=== PATIENT | female | born 1955 | race Caucasian/White ===

== ENCOUNTER → 2020-05-05 13:53 | Outpatient (BNVA) | payer MEDICARE, OTHER, SELFPAY | PROVIDERS: PCP Urology; Visit Provider Nurse Practitioner | DX: J43.9 Emphysema, unspecified (principal); R91.8 Other nonspecific abnormal finding of lung field; E03.9 Hypothyroidism, unspecified; E55.9 Vitamin D deficiency, unspecified | CPT/HCPCS: 80053; 81000; 82306; 82607; 84443; 85025 ==

== ENCOUNTER 2020-05-06 18:05 | Inpatient (IN) | payer MEDICARE, OTHER, SELFPAY ==
[2020-05-06] VITALS (8 sets, daily range): BP systolic 98–154; BP diastolic 72–99; PULSE 72–100; RESP 12–22; TEMP 36.8–36.9; O2SAT 95–100; BMI 17.9
--- NOTE | 2020-05-06 18:08 | XR_ITS ---
WS: [id number] Portable AP upright chest, 05/06/2020 Clinical Data: Chest pain Comparison: Portable chest, 09/19/2017 Findings: There is patchy atelectasis and/or pneumonia of the left upper lobe. The right lung is norm al. The left lower lobe is clear. The heart is normal. No nodules or masses are seen. The aortic arch shows calcification and tortuosity. Monitor leads are on the chest wall. XR/XR chest 1V portable [id number] Impression: 1. Left upper lobe atelectasis or pneumonia. 2. This could be a result of an obstructed bronchus and follow-up chest x-ray i s recommended.
--- NOTE | 2020-05-06 18:09 | ECG_ITS ---
[facility] Test Date: 2020-05-06 Pat Name: Jerica Gary Department: Room: Gender: Female Crime Specialist: : 1955 Requested By: Michelle Mckeon Order Number: [id number] Wells MD: Yasmine Turcios M.D. Measurements Intervals [place] Rate: 85 P: 90 [place]: 161 QRS: 89 QRSD: 81 T: 90 QT: 369 QTc: 441 Interpretive Statements SINUS RHYTHM POSSIBLE LEFT ATRIAL ENLARGEMENT [-0.1mV P WAVE IN V1/V2] Compared to ECG 09/09/2015 13:30:51 No significant changes Electronically Signed On 05-06-2020 20:20:09 SHAKE CUTTER by Yasmine Turcios M.D. [email or web address]
[2020-05-06 19:28] LABS: Basophils # 0.1 10^3/uL (0.0-0.1); Basophils % 0.6 %; Eosinophils # 0.2 10^3/uL (0.0-0.8); Eosinophils % 1.8 %; Hematocrit 46.4 % (37.0-47.0); Hemoglobin 15.4 g/dL (11.5-15.3); Lymphocytes # 3.1 10^3/uL (0.8-4.8); Lymphocytes % 30.7 %; Mean Corpuscular HGB Conc 33.2 g/dL (30.0-36.0); Mean Corpuscular Hemoglobin 31.3 pg (28.0-34.0); Mean Corpuscular Volume 94.3 fL (81-99); Mean Platelet Volume 9.5 fL (7.4-10.4); Neutrophils # 5.68 10^3/uL (1.8-7.7); Neutrophils % 56.7 %; Nucleated Red Blood Cells % 0 %; Platelet Count 631 10^3/cmm (130-400); Red Blood Count 4.92 10^6/uL (4.1-5.3); Red Cell Distribution Width 14.5 % (12.1-15.1)
[2020-05-06] MEDS: sodium chloride 0.9% 1,000 ML 100 ML IV ×2 (19:40→23:51)
[2020-05-06 19:51] LABS: Troponin(5th) Baseline 15 ng/L (0-10)
--- NOTE | 2020-05-06 19:57 | ED_ITS ---
HPI - Chest Pain General: Chief Complaint: Chest Pain Stated Complaint: CHEST PAIN Time Seen by Provider: 05/06/20 18:08 Source: patient and EMS Mode of arrival: EMS Limitations: no limitations History of Present Illness: HPI narrative: Ms. Gary is a nice 65-year-old female who comes in complaining of chest discomfort for the past 2 weeks. She states that every time she exerts herself she begins to get discomfort in her chest and radiation to her neck. She is noticed at times but not always that she has rapid palpitations during this. She states as soon as she rests her symptoms resolved. EMS noted the patient had what was believed to be atrial fibrillation with a rapid ventricular response. She did not require treatment as they started fluids and were preparing to intervene the rhythm resolved on its own. Multiple EMS strips are included somewhat sinus rhythm although to do appear to be likely A. fib with RVR. Patient did have some chest discomfort after she had resolution of the arrhythmia and was given 1 sublingual nitroglycerin and aspirin and her symptoms resolved. Associated symptoms: Reports dyspnea; Deny abdominal pain, diaphoresis, fever(s), nausea, palpitations, syncope or vomiting Review of Systems Const: Denies: fever(s), chills, body aches, fatigue, malaise or diaphoresis Eyes: Denies: change in vision, blurry vision, photophobia, eye discomfort, eye discharge, eye redness or yellow eyes ENMT: Denies: throat pain, odynophagia, hoarseness, swelling of lips/tongue, ear or mastoid pain, ear discharge, change in hearing or nasal discharge Card: Reports: chest pain; Denies: palpitations, irregular heart rhythm, edema, lightheadedness, syncope, pre-syncope, dyspnea on exertion or orthopnea Resp: Reports: dyspnea; Denies: productive cough, non-productive cough, wheezing, hemoptysis or chest congestion GI: Denies: abdominal pain, nausea, vomiting, hematemesis, coffee ground emesis, heartburn, diarrhea, constipation, GI cramping, hematochezia or melena : Denies: flank pain, dysuria, urinary frequency, urinary urgency or hematuria Musc: Denies: neck pain, back pain, extremity pain, extremity swelling, joint pain, joint swelling, joint redness, joint warmth or joint stiffness Skin/Breast: Denies: rash, pruritus, erythema, skin pain or skin tenderness Neuro: Denies: headache(s), numbness in extremities, weakness in extremities, sensory changes, lack of coordination, difficulty walking, dizziness, vertigo, confusion, Slurred speech present or seizure-like activity Jeremy/Lymph: Denies: easy bruising, easy bleeding, petechiae, purpura or enlar ged lymph nodes All/Imm: Denies: urticaria, throat swelling, tongue swelling, facial swelling or acute wheezing PFSH ED PFSH: Medical History Adult hypothyroidism COPD (chronic obstructive pulmonary disease) with emphysema Lung nodule, multiple Surgical History History of back surgery Lumbar 1988 and 1989 History of bladder cancer 2017 History of colonoscopy History of tubal ligation Family History Other Adult hypothyroidism Depression Diabetes Heart disease Social History Smoking and tobacco status: current every day smoker Second hand smoke exposure: No Smoking risk assessment/counseling performed?: Yes Alcohol intake: current Alcohol intake frequency: holidays/special occasions only Desire information about alcohol rehabilitation?: No Counseling given: No Desire information about substance/drug rehabilitation?: No Counseling given: No Adopted: No Caregiver/support person: No Lives independently: Yes Household members: none Housing: House Marital status: / Number of children: 3 service: No Current occupational status: unemployed and retired Pets and animals: Yes Pets & animals: cat(s) and dog(s) History of recent travel: No Current gender identity: Female Physical Exam Const: COMMON NORMALS: no acute distress, patient oriented x3, no limitations and alert GENERAL APPEARANCE: cooperative HENMT: COMMON NORMALS: normocephalic, atraumatic, external ears normal, EAC's normal and Normal external nose present HEAD & SCALP: normal to inspection, normocephalic and atraumatic FACE & SINUS: normal facial exam and face symmetric NOSE: Normal external nose present and Normal nares present EXTERNAL EAR: Yes external ears normal EXTERNAL AUDITORY CANAL: EAC's normal MOUTH: Normal oral and palatal mucosa present, lip normal and tongue normal Eye: COMMON NORMALS: Equal, round and reactive pupils present and conjunctivae normal GENERAL EYE: appearance normal, both eyes and all related structures ALIGNMENT: Yes alignment normal PERIORBITAL: periorbital findings normal EYELID: eyelids normal CONJUNCTIVA: Yes conjunctivae normal SCLERA: sclerae normal PUPIL: Yes Equal, round and reactive pupils present Neck/C-Spine: COMMON NORMALS: full ROM, no lymphadenopathy, supple, no meningeal signs and no JVD GENERAL: Yes normal visual inspection and Yes trachea midline Chest: COMMONS NORMALS: normal inspection of the chest and normal palpation of entire chest wall Resp: COMMON NORMALS: normal respiratory effort, No retractions, No use of accessory muscles and clear to auscultation bilaterally EFFORT & INSPECTION: Yes able to speak in complete sentences and Yes symmetric chest movement AUSCULTATION: clear to auscultation bilaterally, no crackles, no rales, no rhonchi and no wheezes Cardio: COMMON NORMALS: no JVD, regular rate, regular rhythm, S1 normal heart sound present and S2 normal heart sound present RATE: regular rate RHYTHM: regular rhythm HEART SOUNDS: S1 normal heart sound present, S2 normal heart sound present, no click, no gallops, no murmurs and no rubs GI: COMMON NORMALS: Soft to palpation and No hepatosplenomegaly present PALPATION: Yes Soft to palpation, No Tenderness to palpation present (GI), No Guarding due to palpation present (GI), No Rigid due to palpation, Yes No hepatosplenomegaly present, No Hernia present, No Palpable mass present and No Pulsatile mass present : COMMON NORMALS: Yes no CVA tenderness BLADDER/KIDNEY EXAM: Yes no CVA tenderness EXTERNAL FEMALE EXAM: No Hernia present Back/Pelvis: COMMON NORMALS: no CVA tenderness, thoracic and lumbar spine normal to inspection, no thoracic nor lumbar tenderness and thoraco-lumbar ROM normal Extremity: COMMON NORMALS: normal to inspection, full ROM, capillary refill normal, no joint enlargement, no clubbing, cyanosis or edema and no calf tenderness Neuro: COMMON NORMALS: patient oriented x3, CN's II-XII intact bilaterally, moves all extremities, no focal motor deficits and no sensory deficits noted SENSORIUM/ORIENTATION: Yes alert MENINGEAL SIGNS: Yes no meningeal signs SPEECH: speech normal Psych: COMMON NORMALS: mental status grossly normal, Normal thought process present, cooperative, normal affect, speech normal and activity/motor behavior normal SPEECH: Yes normal speech THOUGHT PROCESS: Normal thought process present Skin: COMMON NORMALS: no rashes or lesions noted, turgor normal, no jaundice, no petechiae and no mottling GENERAL SKIN EXAM: no rashes or lesions noted and turgor normal Course Vital Signs: Vital signs: Vital Signs Temperature 98.5 F 05/06/20 23:51 Pulse Rate 80 05/07/20 00:16 Respiratory Rate 22 H 05/06/20 23:51 Blood Pressure 144/75 05/06/20 23:51 Pulse Oximetry 98 05/06/20 23:53 MDM - Chest Pain MDM Narrative: Medical decision making narrative: Mrs. Gary is a nice 65-year-old female who comes in with chest discomfort every time she exerts herself for the past 2 weeks. Her symptoms are brought on by exertion, made worse by exertion and relieved with rest. Tonight she had the symptoms and also had discomfort radiate to her throat her arms. She also felt rapid palpitations. EMS was able to capture the palpitations on twelve-lead. They have a rhythm strip as well which shows A. fib with RVR. The patient converted with IV fluids to a sinus rhythm for them. The patient did have some discomfort even after she converted but her symptoms completely resolved with 1 sublingual nitro given by EMS. Patient was also found to have what I thought was an infiltrate or mass next to her left heart border. Patient cannot tolerate a CTA secondary to anaphylactic reactions in the past and so a noncontrast CT showed atelectasis but questionable partial bronchial obstruction. Is unclear at this time what is the primary issue. Patient could have coronary artery disease that is causing chest discomfort and precipitating A. fib with RVR with exertion. It is possible she has some type of lung tumor or mass causing atelectasis and the COPD and increased hypoxia secondary to this obstruction is causing chest discomfort along with A. fib with RVR. This time the patient has a heart score of at least 7 possibly 8. She also has this lung issue that will need to be looked into further. Based upon all this I believe the patient will need to be evaluated further. The patient was endorsed to Dr. Nowak he is agreeable to evaluate the patient. Lab Data: Attestation: I reviewed the patient's lab results. Labs: Lab Results 05/06/20 05/06/20 05/06/20 Range/Units 18:18 18:18 18:18 WBC 10.0 (4.0-10.0) 10^3/ uL RBC 4.92 (4.1-5.3) 10^6/u L Hgb 15.4 H (11.5-15.3) g/dL Hct 46.4 (37.0-47.0) % MCV 94.3 (81-99) fL MCH 31.3 (28.0-34.0) pg MCHC 33.2 (30.0-36.0) g/dL RDW 14.5 (12.1-15.1) % Plt Count 631 H (130-400) 10^3/c mm MPV 9.5 (7.4-10.4) fL Neut % (Auto) 56.7 % Lymph % (Auto) 30.7 % [place] % (Auto) 10.0 % Eos % (Auto) 1.8 % Baso % (Auto) 0.6 % Neut # (Auto) 5.68 (1.8-7.7) 10^3/u L Lymph # (Auto) 3.1 (0.8-4.8) 10^3/u L [place] # (Auto) 1.0 H (0.2-0.9) 10^3/u L Eos # (Auto) 0.2 (0.0-0.8) 10^3/u L Baso # (Auto) 0.1 (0.0-0.1) 10^3/u L Nucleated RBC % (a uto) 0 % Nucleated RBCs # 0.0 /100WBC PT 12.40 (12.1-14.9) SECO NDS INR 0.90 (0.8-1.2) Sodium 135 L (136-145) mmol/L Potassium 4.9 (3.5-5.1) mmol/L Chloride 97 L (98-107) mmol/L Carbon Dioxide 28 (22-29) mmol/L Anion Gap 14.9 (5-19) BUN 17 (8-23) mg/dL Creatinine 0.8 (0.5-0.9) mg/dL GFR Calculation 72.0 L (90-130) mL/min Glucose 98 (65-115) mg/dL Calculated Osmolal ity 282 L (285-295) mOsm/k g Calcium 9.7 (8.5-10.5) mg/dL Magnesium 2.2 (1.7-2.3) mg/dL Total Bilirubin 0.2 (0.15-1.2) mg/dL AST 15 (0-32) U/L ALT 11 (0-33) U/L Alkaline Phosphata se 78 (35-105) IU/L Troponin T Baselin e (0-10) ng/L Troponin T 120 Min [place] (0-10) ng/L Delta Troponin T (0-10) ABS# NT-Pro-B Natriuret Pep 584 H (0-125) pg/mL Total Protein 6.9 (6.6-8.7) g/dL Albumin 4.7 (3.5-5.2) g/dL Globulin 2.2 (1.3-4.6) g/dL Lipase 39 (13-60) U/L 05/06/20 05/06/20 Range/Units 18:18 20:20 WBC (4.0-10.0) 10^3/ uL RBC (4.1-5.3) 10^6/u L Hgb (11.5-15.3) g/dL Hct (37.0-47.0) % MCV (81-99) fL MCH (28.0-34.0) pg MCHC (30.0-36.0) g/dL RDW (12.1-15.1) % Plt Count (130-400) 10^3/c mm MPV (7.4-10.4) fL Neut % (Auto) % Lymph % (Auto) % [place] % (Auto) % Eos % (Auto) % Baso % (Auto) % Neut # (Auto) (1.8-7.7) 10^3/u L Lymph # (Auto) (0.8-4.8) 10^3/u L [place] # (Auto) (0.2-0.9) 10^3/u L Eos # (Auto) (0.0-0.8) 10^3/u L Baso # (Auto) (0.0-0.1) 10^3/u L Nucleated RBC % (a uto) % Nucleated RBCs # /100WBC PT (12.1-14.9) SECO NDS INR (0.8-1.2) Sodium (136-145) mmol/L Potassium (3.5-5.1) mmol/L Chloride (98-107) mmol/L Carbon Dioxide (22-29) mmol/L Anion Gap (5-19) BUN (8-23) mg/dL Creatinine (0.5-0.9) mg/dL GFR Calculation (90-130) mL/min Glucose (65-115) mg/dL Calculated Osmolal ity (285-295) mOsm/k g Calcium (8.5-10.5) mg/dL Magnesium (1.7-2.3) mg/dL Total Bilirubin (0.15-1.2) mg/dL AST (0-32) U/L ALT (0-33) U/L Alkaline Phosphata se (35-105) IU/L Troponin T Baselin e 15 H (0-10) ng/L Troponin T 120 Min [place] 14.45 H (0-10) ng/L Delta Troponin T -0.55 L (0-10) ABS# NT-Pro-B Natriuret Pep (0-125) pg/mL Total Protein (6.6-8.7) g/dL Albumin (3.5-5.2) g/dL Globulin (1.3-4.6) g/dL Lipase (13-60) U/L Imaging Data^: CXR: Attestation: I personally reviewed and interpreted this imaging study as follows: CT Chest: Radiologist's impression: [address] [address] [address] Scan Report Signed Patient: Jerica Gary Unit #: [id number] : 1955 Age/Sex: 65 / F ADM Date: 07/07/19 Loc: ER Room/Bed: Attending Dr: Ordering Provider/Ordering MD: Michelle Wiseman DO Date of Service: 05/06/20 Procedure(s): CT chest con [id number] Accession Number(s): [id number] Report Number: [id number] PROCEDURE INFORMATION: Exam: CT Chest Without Contrast; Diagnostic Exam date and time: 05/06/2020 8:12 PM Age: 65 years old Clinical indication: Chest pain; Additional info: Cp TECHNIQUE: Imaging protocol: Diagnostic computed tomography of the chest without contrast. Radiation optimization: All CT scans at this facility use at least one of these dose optimization techniques: automated exposure control; mA and/or kV adjustment per patient size (includes targeted exams where dose is matched to clinical indication); or iterative reconstruction. COMPARISON: CT chest con [id number] 12/19/2014 10:17 AM RADIATION DOSE METRICS: Total DLP (mGy-cm): 360.38 FINDINGS: Lungs: Mild centrilobular emphysema is noted. Partial atelectasis of the left upper lobe is noted. The left upper lobe bronchus is severely narrowed, possibly compressed Small indeterminate subcentimeter nodules are again seen in the right lower lobe, which appear stable and are likely benign. Pleural space: Unremarkable. No pneumothorax. No pleural effusion. Heart: The heart is normal in size Aorta: Unremarkable. No aortic aneurysm. Lymph nodes: Unremarkable. No enlarged lymph nodes. Bones/joints: Unremarkable. No acute fracture. Soft tissues: Unremarkable. CT/CT chest [facility] [id number] IMPRESSION: 1. Partial left upper lobe atelectasis and left upper lobe bronchus narrowing. Bronchoscopy is recommended for further assessment. 2. Mild centrilobular emphysema. Radiation Dose CTDIVOL = (mGy): DLP = 360.38 (mGy-cm) Dictated By: Cain Cardenas MD Signed By: Cain Cardenas MD Signed Date/Time: 05/06/202123 DD/ 06 EKG Data^: EKG 1: Attestation: I personally reviewed and interpreted this EKG as follows: EKG interpretation date: 05/06/20 EKG interpretation time: 18:24 Interpretation: Normal sinus rhythm at 91 beats a minute, no blocks, normal intervals, normal axis, nonspecific ST and T wave changes. Benign early repole. Confirmed with Dr. Hernandez. Similar to previous. EKG 2: Attestation: I personally reviewed and interpreted this EKG as follows: EKG interpretation date: 05/06/20 EKG interpretation time: 20:14 Interpretation: Normal sinus rhythm at 85 beats a minute, diffuse mild ST segment elevation consistent with benign early repolarization. Nonspecific T wave inversions in aVL and V2. Unchanged from previous. EKG 3: Attestation: I personally reviewed and interpreted this EKG as follows: EKG interpretation date: 05/06/20 EKG interpretation time: 23:09 Interpretation: Normal sinus rhythm at 85 beats a minute, diffuse ST segment elevations consistent with benign early repolarization. T wave inversions aVL V2. All unchanged from previous. Discharge Plan Discharge Patient Disposition: Placed in Observation Admit Provider: Parker Nowak Clinical Impression: Paroxysmal atrial fibrillation with RVR, Atelectasis of left lung Chest pain Qualifiers: Chest pain type: chest pain due to myocardial ischemia Ischemic chest pain type: unstable angina pectoris Qualified Code(s): I20.0 - Unstable angina Coding Level of Care Code ED Health Care / Medical Job Titles for Aaliyah Fwd Exam Comprehensive
[2020-05-06 19:59] LABS: Alanine Aminotransferase 11 U/L (0-33); Albumin Level 4.7 g/dL (3.5-5.2); Alkaline Phosphatase 78 IU/L (35-105); Anion Gap 14.9 (5-19); Aspartate Amino Transferase 15 U/L (0-32); Blood Urea Nitrogen 17 mg/dL (8-23); Calcium 9.7 mg/dL (8.5-10.5); Carbon Dioxide 28 mmol/L (22-29); Chloride 97 mmol/L (98-107); Globulin 2.2 g/dL (1.3-4.6); Glucose 98 mg/dL (65-115); Lipase 39 U/L (13-60); Magnesium 2.2 mg/dL (1.7-2.3); NT Pro B Type Natriuretic Pept 584 pg/mL (0-125); Osmolality Calculated 282 mOsm/kg (285-295); Potassium 4.9 mmol/L (3.5-5.1); Sodium 135 mmol/L (136-145); Total Bilirubin 0.2 mg/dL (0.15-1.2); Total Protein 6.9 g/dL (6.6-8.7)
--- NOTE | 2020-05-06 20:06 | CTR_ITS ---
PROCEDURE INFORMATION: Exam: CT Chest Without Contrast; Diagnostic Exam date and time: 05/06/2020 8:12 PM Age: 65 years old Clinical indication: Chest pain; Additional info: Cp TECHNIQUE: Imaging protocol: Diagnostic computed tomography of the chest without contrast. Radiation optimization: All CT scans at this facility use at least one of these dose optimization techniques: automated exposure control; mA and/or kV adjustment per patient size (includes targeted exams where dose is matched to clinical indication); or iterative reconstruction. COMPARISON: CT chest con [id number] 12/19/2014 10:17 AM RADIATION DOSE METRICS: Total DLP (mGy-cm): 360.38 FINDINGS: Lungs: Mild centrilobular emphysema is noted. Partial atelectasis of the left upper lobe is noted. The left upper lobe bronchus is severely narrowed, possibly compressed Small indeterminate subcentimeter nodules are again seen in the right lower lobe, which appear stable and are likely benign. Pleural space: Unremarkable. No pneumothorax. No pleural effusion. Heart: The heart is normal in size Aorta: Unremarkable. No aortic aneurysm. Lymph nodes: Unremarkable. No enlarged lymph nodes. Bones/joints: Unremarkable. No acute fracture. Soft tissues: Unremarkable. CT/CT chest con [id number] IMPRESSION: 1. Partial left upper lobe atelectasis and left upper lobe bronchus narrowing. Bronchoscopy is recommended for further assessment. 2. Mild centrilobular emphysema. Radiation Dose CTDIVOL = (mGy): DLP = 360.38 (mGy-cm)
--- NOTE | 2020-05-06 20:09 | ECG_ITS ---
[facility] Test Date: 2020-05-06 Pat Name: Jerica Gary Department: Room: Gender: Female Activities Manager: : 1955 Requested By: Michelle Mckeon Order Number: [id number] Priscilla MD: Tha Hernandez M.D. Measurements Intervals [place] Rate: 91 P: 92 MS: 155 QRS: 89 QRSD: 77 T: 89 QT: 355 QTc: 438 Interpretive Statements SINUS RHYTHM POSSIBLE LEFT ATRIAL ENLARGEMENT [-0.1mV P WAVE IN V1/V2] Compared to ECG 09/09/2015 13:30:51 No significant changes Electronically Signed On 05-07-2020 17:40:58 PANTRY STEWARD/STEWARDESS by Tha Hernandez M.D. [email or web address]
--- NOTE | 2020-05-06 20:16 | PC.NURSE ---
EKG done at 2014 and shown to ER doctor
[2020-05-06 21:07] LABS: Troponin 5 2HR 14.45 ng/L (0-10)
[2020-05-06 21:12] LABS: Troponin 5 2HR Delta -0.55 ABS# (0-10)
[2020-05-06] MEDS: cefTRIAXone 2,000 MG in sodium chloride 0.9% (plus) 50 ML 100 MG IV (21:26)
--- NOTE | 2020-05-06 21:33 | PC.NURSE ---
Addendum entered by Ami Sierra RN 05/06/20 21:34: not 1910 actual time 2110 not 1918 actual time 2118 Original Note: 1910 Left hand BC x1 1918 2nd BC R AC Saline lock with flush before and after and waste 6cc
[2020-05-06] MEDS: azithromycin 500 MG in sodium chloride 0.9% 250 ML 250 MG IV (21:50)
--- NOTE | 2020-05-06 23:29 | PC.NURSE ---
report given to david evans
[2020-05-07] VITALS (13 sets, daily range): BP systolic 132–147; BP diastolic 77–82; PULSE 65–88; RESP 15–19; TEMP 36.4–36.7; O2SAT 95–99
--- NOTE | 2020-05-07 01:17 | USCV_ITS ---
Jerica Gary Age: 65 Gender: F : 1955 Exam Date: 05/07/2020 06:31 Ordering Phys: Parker Nowak MD Technologist: Mis Mercedes [place] [facility] [place]: CHEST PAIN BP: 147 / 82 HR: 79 Rhythm: Sinus Technical Quality: Adequate MEASUREMENTS (Male / Female) Normal Values 2D ECHO LV Diastolic Diameter PLAX 3.2 cm 4.2 - 5.9 / 3.9 - 5.3 cm LV Systolic Diameter PLAX 2.1 cm LV Chamber Size 3.0 cm IVS Diastolic Thickness 0.9 cm 0.6 - 1.0 / 0.6 - 0.9 cm IVS Systolic Thickness 1.5 cm LVPW Diastolic Thickness 1.3 cm 0.6 - 1.0 / 0.6 - 0.9 cm LVPW Systolic Thickness 1.4 cm RV Chamber Size 2.6 cm LVOT Diameter 2.0 cm LV Ejection Fraction 2D Teich 62.8 % LV Ejection Fraction MOD 2C 80.4 % LV Ejection Fraction 2C AL 81.3 % LA Diameter 2.8 cm LA Width 2.6 cm LA Height 2.6 cm RA Width 2.7 cm RA Height 2.9 cm Aorta at Sinotubular Diameter 2.8 cm M-MODE LV Diastolic Diameter MM 3.5 cm 4.2 - 5.9 / 3.9 - 5.3 cm LV Systolic Diameter MM 2.1 cm LV Ejection Fraction MM Teich 71.7 % IVS Diastolic Thickness MM 1.2 cm 0.6 - 1.0 / 0.6 - 0.9 cm IVS Systolic Thickness MM 1.2 cm LVPW Diastolic Thickness MM 1.1 cm 0.6 - 1.0 / 0.6 - 0.9 cm LVPW Systolic Thickness MM 1.5 cm RV Diastolic Diameter MM 1.6 cm Aortic Annulus Diameter 3.4 cm LA Ao Ratio MM 0.9 MV E Point Septal Separation 0.2 cm DOPPLER AV Peak Velocity 132.0 cm/s LVOT Peak Velocity 111.0 cm/s AV Area Cont Eq vti 3.3 cm squared AV Area Cont Eq pk 2.7 cm squared MV Area PHT 3.9 cm squared Mitral E to A Ratio 1.1 MV E' Velocity 53.0 cm/s Mitral E to MV E' Ratio 9.1 Mitral E to LV E' Lateral Ratio 12.7 Mitral E to LV E' Septal Ratio 7.1 TR Peak Velocity 195.1 cm/s TR Peak Gradient 15.2 mmHg TR Mean Velocity 157.4 cm/s TR Mean Gradient 12.9 mmHg TR Velocity Time Integral 62.5 cm TV Peak E Velocity 59.0 cm/s Right Atrial Pressure 8.0 mmHg Pulmonary Artery Systolic Pressu 23.2 mmHg PV Peak Velocity 67.0 cm/s RV Acceleration Time 0.2 s RV Ejection Time 0.4 s RV AcT/ET 0.4 FINDINGS Left Ventricle Normal left ventricular size and systolic function, EF 82 %. Mild left ventricular hypertrophy. No regional wall motion abnormalities. Right Ventricle The right ventricle is normal in size and function. Right Atrium The right atrium is normal in size. Left Atrium The left atrium is normal in size. Mitral Valve Thickened mitral valve. Aortic Valve No gross abnormalities noted Tricuspid Valve Trace tricuspid valve regurgitation. Pulmonic Valve No gross abnormalities noted Pericardium Normal pericardium without effusion. Aorta Normal ascending aorta dimension. CONCLUSIONS Normal left ventricular size and systolic function, EF 82 %. Mild left ventricular hypertrophy. No regional wall motion abnormalities. Thickened mitral valve. Trace tricuspid valve regurgitation. Normal pulmonary artery systolic pressure There is no pericardial effusion. There are no intracardiac masses. No similar previous studies are available for comparison Dr Christ Berumen MD [facility] (Electronically Signed) Final Date: 07 May 2020 14:15 S
--- NOTE | 2020-05-07 01:23 | PM.HP ---
Providers/Chief Complaint Admitting Physician: Parker Nowak MD Primary Care Provider: Cholo Finley MD Chief Complaint: CHEST PAIN History of Present Illness Jerica Gary is a 65 year old female with past medical history of COPD, Ca, bladder (5 years back) followed with Dr. Finley, came in with chief complaint of worsening shortness of breath, going on for 2 weeks, as well as cough, with scant whitish sputum production, as well as chest pain and palpitation. Chest pain is going on for 2-weeks according to she has substernal chest pain with minimal exertion, and radiates to her neck, chest pain is accompanied by, severe episodes of palpitations, and it subsides with rest.EMS noted the patient had what was believed to be atrial fibrillation with a rapid ventricular response. She did not require treatment as they started fluids and were preparing to intervene the rhythm resolved on its own. Multiple EMS strips are included somewhat sinus rhythm although to do appear to be likely A. fib with RVR. Patient did have some chest discomfort after she had resolution of the arrhythmia and was given 1 sublingual nitroglycerin and aspirin and her symptoms resolved. She is also complaining of weight loss of 15 to 20 pound, in last couple of months, though she has good appetite. She has been a chronic smoker and she has quit smoking 4 years back but reports that she smoked for close to 40 years about a pack a day. She resumed smoking this January after her in January. Following her at she has been under extreme stress. Upon arrival in the ER she was worked up for shortness of breath as well as chest pain: D-dimer was not done, CT angio was not done as she has dye allergy. Imaging studies: CT chest without contrast: Mild centrilobular emphysema is noted. Partial atelectasis of the left upper lobe is noted. The left upper lobe bronchus is severely narrowed, possibly compressed Small indeterminate subcentimeter nodules are again seen in the right lower lobe, which appear stable and are likely benign. Pleural space: Unremarkable. No pneumothorax. No pleural effusion. EKG: Normal sinus rhythm at 91 beats a minute, no blocks, normal intervals, normal axis, nonspecific ST and T wave changes. Benign early repole. ER physician confirmed with Dr. Hernandez. Similar to previous. Normal sinus rhythm at 85 beats a minute, diffuse mild ST segment elevation consistent with benign early repolarization. Nonspecific T wave inversions in aVL and V2. Unchanged from previous Pertinent labs: H/H: 15/46, PLT : 631 , WBC : 10 Troponin: Baseline : 15, 2-hour: 14, delta T: -0.55 6-hour: 13 detail T 6 hours: -1.10 proBNP: 584 25 -OH-D : 12 , TSH: 3.67 D-dimer : Awaited Review of Systems Const: Denies: fever(s), chills, body aches, change in appetite or diaphoresis Card: Denies: edema or swelling of feet/ankles Resp: Denies: wheezing or pain on inspiration GI: Denies: abdominal pain, nausea, vomiting, diarrhea or constipation : Denies: flank pain Musc: Denies: back pain, extremity pain or extremity swelling Neuro: Denies: headache(s), difficulty walking or confusion Medications/Allergies Home Medications Medication Instructions Recorded Confirmed Last Taken Type albuterol sulfate 90 mcg/actuation 2 puff INHALATION Q6H PRN #18 g 05/01/20 05/06/20 05/06/20 Rx aerosol inhaler aspirin 81 mg PO DAILY 05/06/20 05/06/20 05/06/20 History Allergies Allergy/AdvReac Type Severity Reaction Status Date / Time Corticosteroids Allergy Unknown Unknown Verified 05/06/20 18:21 (Glucocorticoids) iodine Allergy Unknown Unknown Verified 05/06/20 18:21 Penicillins Allergy Unknown Unknown Verified 05/06/20 18:21 promethazine Allergy Unknown Unknown Verified 05/06/20 18:21 epinephrine Allergy SOB Verified 05/06/20 18:21 [From Primatene Mist] sulfa drugs Allergy Unknown Unknown Uncoded 05/06/20 18:21 thyroid agents Allergy Unknown Unknown Uncoded 05/06/20 18:21 PFSH Acute PFSH: Medical History Adult hypothyroidism COPD (chronic obstructive pulmonary disease) with emphysema Lung nodule, multiple Surgical History History of back surgery Lumbar 1988 and 1989 History of bladder cancer 2017 History of colonoscopy History of tubal ligation Family History Other Adult hypothyroidism Depression Diabetes Heart disease Social History Smoking and tobacco status: current every day smoker Second hand smoke exposure: No Smoking risk assessment/counseling performed?: Yes Alcohol intake: current Alcohol intake frequency: holidays/special occasions only Desire information about alcohol rehabilitation?: No Counseling given: No Desire information about substance/drug rehabilitation?: No Counseling given: No Adopted: No Caregiver/support person: No Lives independently: Yes Household members: none Housing: House Marital status: / Number of children: 3 service: No Current occupational status: unemployed and retired Pets and animals: Yes Pets & animals: cat(s) and dog(s) History of recent travel: No Current gender identity: Female Vitals/I&O/Wt Last Vital Signs Temp 98.5 F 05/06/20 23:51 Pulse 80 05/07/20 00:16 Resp 22 H 05/06/20 23:51 BP 144/75 05/06/20 23:51 Pulse Ox 98 05/06/20 23:53 05/06/20 05/06/20 05/07/20 14:59 22:59 06:59 Intake Total 418.333 / 418.333 Balance 418.333 / 418.333 Weight last 48 hrs Weight 48.988 kg Physical Exam Const: COMMON NORMALS: patient oriented x3 HENMT: COMMON NORMALS: normocephalic, atraumatic, hearing grossly normal bilaterally and external ears normal HEAD & SCALP: normocephalic and atraumatic EXTERNAL EAR: Yes external ears normal Eye: COMMON NORMALS: no scleral icterus GENERAL EYE: appearance normal, both eyes and all related structures Chest: COMMONS NORMALS: normal inspection of the chest and normal palpation of entire chest wall CHEST: Yes Symmetrical chest wall rise Resp: COMMON NORMALS: normal respiratory effort, No retractions and No use of accessory muscles EFFORT & INSPECTION: Yes symmetric chest movement OTHER: Decreased air entry bilaterally , prominently at the bases , minimal expiratory wheezing l Cardio: COMMON NORMALS: regular rate, regular rhythm, S1 normal heart sound present, S2 normal heart sound present, No gallops present (Cardio), No murmurs present (Cardio), No rub (Cardio) and Peripheral pulses 2+ throughout RATE: regular rate RHYTHM: regular rhythm HEART SOUNDS: S1 normal heart sound present and S2 normal heart sound present PERIPHERAL PULSES: Peripheral pulses 2+ throughout GI: COMMON NORMALS: Normal to inspection, nondistended, normoactive bowel sounds present, Soft to palpation, non-tender, No hepatosplenomegaly present and no masses AUSCULTATION: Yes normoactive bowel sounds PALPATION: Yes Soft to palpation and Yes No hepatosplenomegaly present RECTAL EXAM: deferred Extremity: COMMON NORMALS: no clubbing, cyanosis or edema and no pedal edema Neuro: COMMON NORMALS: patient oriented x3 Data : 05/06/20 18:18 05/06/20 18:18 Micro: Microbiology 05/07/20 00:35 Blood Culture - Preliminary Blood SPECIMEN COLLECTED 05/06/20 21:19 Blood Culture - Preliminary Blood SPECIMEN COLLECTED A&P Assessment and plan (1) Chest pain: Troponins are flat. Currently not complaining of any chest discomfort. Likely related to anxiety. Less likely cardiac. 2D echo Monitor telemetry Possible outpatient stress test. Continue aspirin 81 mg oral daily Sublingual nitro. Status: Acute Qualifiers: Chest pain type: chest pain due to myocardial ischemia Ischemic chest pain type: unstable angina pectoris Qualified Code(s): I20.0 - Unstable angina (2) COPD (chronic obstructive pulmonary disease) with emphysema: COPD exacerbation: Patient comes in with chief complaint of worsening shortness of breath, cough, with worsening sputum production. Has history of extensive smoking. DuoNeb, Supplemental oxygen as needed Azithromycin 500 mg IV daily Solu-Medrol 60 mg IV daily Status: Acute (3) Paroxysmal atrial fibrillation with RVR: EMS is giving history of transient A. fib with RVR. None of the EKG strip suggestive of A. fib. Given her significant history of COPD, hypoxemia driven multifocal atrial tachycardia, A. fib are possibilities. We will monitor on telemetry. 2D echo Post admission heart rate is pretty well controlled and is in sinus rhythm. We will consider cardioselective beta-leroy if needed. Will hold on anticoagulation for now. Possible ischemia work-up as a cause of new onset A. fib if needed. Status: Acute (4) Vitamin D deficiency: Cholecalciferol 6000 unit p.o. daily for 8 weeks. Status: Acute (5) Erythrocytosis: Hemoglobin is 15.4. Likely secondary erythrocytosis, in the setting of longstanding COPD. Less likely PCV. Will hold off on erythropoietin level for now. We will continue to monitor CBC. Status: Acute (6) Thrombocytosis: Less likely essential thrombocytosis. Likely reactive thrombocytosis. We will hold off on JAK2 mutation testing. Continue aspirin, no indication for hydroxyurea. We will continue to monitor platelet count Status: Acute (7) History of bladder cancer: She has followed Dr. Finley, in the past. Currently she is giving history of occasional hematuria. Urine blood: Trace. Willing to follow-up with Dr. Finley as an outpatient Status: Inactive (8) Lung nodule, multiple: Small indeterminate subcentimeter nodules are in the right lower lobe, which appear stable and are likely benign, no prior study available for comparison. Status: Acute Additional A&P Information # left upper lobe bronchus narrowing: We will need to follow pulmonary medicine as an outpatient, for further evaluation of possible CA lung, given her significant smoking history and possible bronchoscopy as an outpatient. #DVT prophylaxis: Lovenox 40 mg subcu daily #CODE STATUS: Full code #Disposition: Home Attestations Medical Necessity Statement*: Patient needs to be in hospital for management of chest pain, abnormal EKG, COPD exacerbation. Anticipated length of stay greater than 2 midnightS. Coding Level of Care Code Acute Health Promotion Coordinator for Chg Fwd Diagnoses Chest pain I20.0 Chest pain type: chest pain due to myocardial ischemia Ischemic chest pain type: unstable angina pectoris COPD (chronic obstructive pulmonary disease) with emphysema J43.9 Paroxysmal atrial fibrillation with RVR I48.0 Vitamin D deficiency E55.9 Erythrocytosis D75.1 Thrombocytosis D47.3 History of bladder cancer Z85.51 Lung nodule, multiple R91.8
--- NOTE | 2020-05-07 01:24 | USCV_ITS ---
Cookie Jerica Age: 65 Gender: F : 1955 Exam Date: 05/07/2020 06:54 Ordering Phys: Parker Nowak MD Technologist: Mis Mercedes Exam Location: [facility] [place] Indication: CHEST PAIN HISTORY: Pneumonia with chest pain PROCEDURES: Venous duplex imaging was performed in bilateral lower extremities. The following venous structures were evaluated: common femoral vein, profunda vein, proximal portion of the greater saphenous vein, superficial femoral vein, and the popliteal vein. In addition, the posterior tibial and peroneal trunk were evaluated. Serial compression, augmentation maneuvers, and spectral Doppler flow evaluation were performed. FINDINGS: No DVT seen in any vessel examined The veins were found to be easily compressible with spontaneous blood flow. Non pulsatile flow pattern. CONCLUSIONS No evidence of DVT in the above-mentioned identifiable veins. Dr Christ Berumen MD [facility] (Electronically Signed) Final Date: 07 May 2020 14:18 S
[2020-05-07] MEDS: FUROsemide 10 mg/mL SDV 2mL 20 MG IVP (02:15)
[2020-05-07] MEDS: enoxaparin 40 mg/0.4 mL Syringe SUBCUT (02:15)
[2020-05-07] MEDS: cholecalciferol (vitamin D3) 1,000 unit Tablet 6000 UNIT PO (08:24)
[2020-05-07] MEDS: aspirin 81 mg EC Tablet PO (08:26)
[2020-05-07] MEDS: sodium chloride 0.9% 1,000 ML 100 ML IV (08:27)
[2020-05-07] MEDS: ipratropium-albuterol 3 mL Neb INHALATION (08:37)
--- NOTE | 2020-05-07 09:00 | PC.NURSE ---
patient refusing to take solu-medrol, states that she is allergic to corticosteroids. dr juan notified of this and that the patient refused morning lab draws.
[2020-05-07 09:03] LABS: D Dimer 0.85 ug/mIFEU (0-0.59)
--- NOTE | 2020-05-07 09:28 | NM_ITS ---
WS: [id number] NUCLEAR MEDICINE LUNG VENTILATION AND PERFUSION CLINICAL INFORMATION: chest pain, sob, elevated d didmer TECHNIQUE: Ventilation/perfusion lung scan with 32.4 mCi technetium 99m DTPA. 5.1 mCi technetium 99m MAA COMPARISON: CT chest May 06, 2020 FINDINGS: Symmetric bilateral radiotracer uptake on the perfusion images. Normal ventilatory images with mild c entral bronchial deposition. No mismatched ventilation/perfusion defects to indicate pulmonary embolu s. No suspicious findings. NM/NM pul vent and perfus* [id number] IMPRESSION: 1. Low probability for pulmonary embolus.
--- NOTE | 2020-05-07 10:49 | PC.CHAP ---
Pastoral Care Encounter/Spiritual Assessment Type of Contact [] Declined surveyor mine visit [] Patient/Family/Request visit [] Outpatient visit [] Follow-up visit [] Physician referral [] Code/Alert [X] Routine visit [] Staff referral [] Actively dying [] Patient sleeping [] Family support [] [] Out of room [] Palliative care [] [x] Receiving care in room [] Pre-surgical visit [] Trauma [] Long length of stay [] ICU visit [] Other: Relational/Emotional Strength [x] Patient feels connected with others/family/visitors/staff [] Distress [] Loneliness/isolation [] Abandonment Spirituality of Patient [x] Person of Arcelia [] Attends Yazdanism of their [place] [x] Believes in Prayer [] Reads Bible or Baptism materials [] There are Spiritual issues to be addressed Client Portfolio Manager Interventions [x] Prayer [x] Active listening [x] Non-anxious presence [x] Spiritual/emotional support [] Crisis/trauma care [x] Spiritual counseling [] Bereavement support [] Provided bereavement packet [] Provided Bible/devotional materials [] Provided toy/stuffed animal, coloring book to patient or family member [] Provided Communion [] Anointing/Vanzant [] Salvation [x] Completed spiritual assessment [] Other: Impact on Illness or Injury [] Angry [] Fearful [] Anxious [] Often cries [] Exhaustion [] Unable to work [] Unable to attend christianity [] Unable to walk/stand [] Unable to read [] Unable to drive [] Unable to eat/drink [] Unable to sleep [] Unable to be with family [] Patient intubated [] Other: Summary High BP, changing Meds, has a good attitiude, getting ready to go home, the doctor will check on her there Time spent with patient 10 mins
--- NOTE | 2020-05-07 15:09 | P.DS_ITS ---
Discharge Providers Date of Admission: 05/06/20 22:57 Date of Discharge: May 07, 2020 Attending Provider at Admission: Parker Nowak MD Attending Provider at Discharge: Alfonso Vigil MD Primary Care Provider: Cholo Finley MD Diagnoses at Discharge Discharge Diagnosis (1) Chest pain: Status: Acute Qualifiers: Chest pain type: chest pain due to myocardial ischemia Ischemic chest pain type: unstable angina pectoris Qualified Code(s): I20.0 - Unstable angina (2) COPD (chronic obstructive pulmonary disease) with emphysema: Status: Acute (3) Paroxysmal atrial fibrillation with RVR: Status: Acute (4) Vitamin D deficiency: Status: Acute (5) Erythrocytosis: Status: Acute (6) Thrombocytosis: Status: Acute (7) History of bladder cancer: Status: Inactive Permanent problem details: 2016 (8) Lung nodule, multiple: Status: Acute Reason for Visit Reason for Visit: CHEST PAIN Hospital Course Hospital Course This is a 65-year-old female with a past medical history of COPD, bladder cancer, who presents [facility] for chest pain and shortness of breath For her chest pain, seemed atypical in nature, baseline troponin was 15, 6-hour troponin 13.9, EKG showed no acute ST-T wave changes, no recurrent episodes of chest pain, echocardiogram showed an EF of 82%, mild LVH, no regional wall motion abnormalities, no recurrent chest pain as inpatient. Patient was discharged on aspirin, statin, as needed nitro with close follow-up with cardiology as outpatient for consideration of stress testing. Patient was advised that if she were to have recurrent chest pain, shortness of breath come back to emergency room Patient had elevated D-dimer on admission, bilateral lower extremity ultrasound negative for DVT, she had allergy to contrast, ventilation/perfusion scan showed low probability of pulmonary emboli, no hemoptysis, no immobility, no significant risk factors, saturating in the high 90s on room air Patient CT of the chest did show partial left upper lobe atelectasis, and left upper lobe bronchus narrowing. No fevers, no evidence of hypoxia, no shortness of breath with exertion during inpatient. I discussed with pulmonary team, given her history of smoking COPD, she would benefit from bronchoscopy to rule out underlying malignancy. I have discharged patient with a close follow-up with pulmonary in 1 week. Patient had a mild COPD exacerbation, discharged on prednisone burst, doxycycline Patient had atrial fibrillation seen by EMS staff on transport to the hospital, no repeat episodes of atrial fibrillation on telemetry, no repeat episodes of A. fib on EKG. Thus the concern was for paroxysmal atrial fibrillation, as a possible source for her chest pain and shortness of breath. After discussion with Dr. Berumen, we have decided to discharge the patient on event monitor for 14 days, Dr. Berumen will follow. Physical Exam Const: COMMON NORMALS: no acute distress and patient oriented x3 HENMT: COMMON NORMALS: normocephalic HEAD & SCALP: normocephalic Neck/C-Spine: COMMON NORMALS: no JVD Resp: COMMON NORMALS: normal respiratory effort, No retractions, No use of accessory muscles and clear to auscultation bilaterally AUSCULTATION: clear to auscultation bilaterally Cardio: COMMON NORMALS: no JVD, regular rate, regular rhythm, S1 normal heart sound present and S2 normal heart sound present RATE: regular rate RHYTHM: regular rhythm HEART SOUNDS: S1 normal heart sound present and S2 normal heart sound present GI: COMMON NORMALS: Normal to inspection, nondistended, normoactive bowel sounds present, Soft to palpation, non-tender, No hepatosplenomegaly present, no masses and no bruits PALPATION: Yes Soft to palpation and Yes No hepatosplenomegaly present Extremity: COMMON NORMALS: capillary refill normal, no clubbing, cyanosis or edema, no calf tenderness and no pedal edema Neuro: COMMON NORMALS: patient oriented x3 Psych: COMMON NORMALS: mental status grossly normal Discharge Data Data Completed and Pending: Completed Studies During Hospitalization Category Date Time Status CT chest wo con 7 1250 Stat Cat Scan 05/06/20 20:06 Completed XR chest 1V balaji ble [id number] Stat Exams 05/06/20 18:08 Completed NM pul vent and p erfus* [id number] Stat Nuc Med 05/07/20 09:28 Completed CV echo complete* [id number] Routine Ultrasound 05/07/20 01:17 [place] [id number] Routin e Ultrasound 05/07/20 01:24 Completed Pending at discharge Category Date Time Status Blood Culture Sta t Lab 05/06/20 21:19 Results Comprehensive Met abolic Panel AM [facility] Lab 05/08/20 04:00 Ordered Comprehensive Met abolic Panel AM [facility] Lab 05/09/20 04:00 Ordered Comprehensive Met abolic Panel AM LA BS Lab 05/10/20 04:00 Ordered Magnesium AM [facility] Lab 05/08/20 04:00 Ordered Phosphorus AM LAB S Lab 05/08/20 04:00 Ordered Procalcitonin AM [facility] Lab 05/08/20 04:00 Ordered Prothrombin Time INR AM [facility] Lab 05/08/20 04:00 Ordered Thyroid Stimulati ng Hormone AM [facility] Lab 05/08/20 04:00 Ordered Labs from last 24 hours 05/07/20 05/07/20 05/06/20 00:35 00:35 20:20 WBC RBC Hgb Hct MCV MCH MCHC RDW Plt Count MPV Neut % (Auto) Lymph % (Auto) [place] % (Auto) Eos % (Auto) Baso % (Auto) Neut # (Auto) Lymph # (Auto) [place] # (Auto) Eos # (Auto) Baso # (Auto) Nucleated RBC % (a uto) Nucleated RBCs # PT INR D-Dimer 0.85 H Sodium Potassium Chloride Carbon Dioxide Anion Gap BUN Creatinine GFR Calculation Glucose Calculated Osmolal ity Calcium Magnesium Total Bilirubin AST ALT Alkaline Phosphata se Troponin T Baselin e Troponin T 120 Min seneca 14.45 H Delta Troponin T -0.55 L Troponin T Hi Sens 6Hr 13.90 H Troponin T Hi Sens 6Hr Delta -1.10 L NT-Pro-B Natriuret Pep Total Protein Albumin Globulin Lipase 05/06/20 05/06/20 05/06/20 18:18 18:18 18:18 WBC RBC Hgb Hct MCV MCH MCHC RDW Plt Count MPV Neut % (Auto) Lymph % (Auto) [place] % (Auto) Eos % (Auto) Baso % (Auto) Neut # (Auto) Lymph # (Auto) [place] # (Auto) Eos # (Auto) Baso # (Auto) Nucleated RBC % (a uto) Nucleated RBCs # PT 12.40 INR 0.90 D-Dimer Sodium 135 L Potassium 4.9 Chloride 97 L Carbon Dioxide 28 Anion Gap 14.9 BUN 17 Creatinine 0.8 GFR Calculation 72.0 L Glucose 98 Calculated Osmolal ity 282 L Calcium 9.7 Magnesium 2.2 Total Bilirubin 0.2 AST 15 ALT 11 Alkaline Phosphata se 78 Troponin T Baselin e 15 H Troponin T 120 Min seneca Delta Troponin T Troponin T Hi Sens 6Hr Troponin T Hi Sens 6Hr Delta NT-Pro-B Natriuret Pep 584 H Total Protein 6.9 Albumin 4.7 Globulin 2.2 Lipase 39 05/06/20 18:18 WBC 10.0 RBC 4.92 Hgb 15.4 H Hct 46.4 MCV 94.3 MCH 31.3 MCHC 33.2 RDW 14.5 Plt Count 631 H MPV 9.5 Neut % (Auto) 56.7 Lymph % (Auto) 30.7 [place] % (Auto) 10.0 Eos % (Auto) 1.8 Baso % (Auto) 0.6 Neut # (Auto) 5.68 Lymph # (Auto) 3.1 [place] # (Auto) 1.0 H Eos # (Auto) 0.2 Baso # (Auto) 0.1 Nucleated RBC % (a uto) 0 Nucleated RBCs # 0.0 PT INR D-Dimer Sodium Potassium Chloride Carbon Dioxide Anion Gap BUN Creatinine GFR Calculation Glucose Calculated Osmolal ity Calcium Magnesium Total Bilirubin AST ALT Alkaline Phosphata se Troponin T Baselin e Troponin T 120 Min seneca Delta Troponin T Troponin T Hi Sens 6Hr Troponin T Hi Sens 6Hr Delta NT-Pro-B Natriuret Pep Total Protein Albumin Globulin Lipase Vitals: Last Vital Signs Temp 97.9 F 05/07/20 11:23 Pulse 83 05/07/20 11:23 Resp 15 05/07/20 11:23 BP 132/77 05/07/20 11:23 Pulse Ox 97 05/07/20 11:23 Discharge Plan Discharge Patient Disposition: Home Condition: Stable Prescriptions: New prednisone 20 mg tablet 20 mg PO BID 5 Days Qty: 10 RF: 0 nitroglycerin 0.4 mg tablet, sublingual 0.4 mg sublingual Q5M PRN (Reason: chest pain) Qty: 5 RF: 0 atorvastatin 40 mg tablet 40 mg PO DAILY 30 Days Qty: 30 RF: 0 doxycycline hyclate 100 mg capsule 100 mg PO BID 5 Days Qty: 10 RF: 0 Spiriva with HandiHaler 18 mcg capsule, w/inhalation device 1 cap inhalation DAILY Qty: 30 RF: 0 Continued albuterol sulfate [ProAir HFA] 90 mcg/actuation HFA aerosol inhaler 2 puff inhalation Q6H PRN (Reason: shortness of breath or wheezing) Qty: 18 RF: 0 aspirin 81 mg Tablet 81 mg PO DAILY RF: 0 Discharge Orders: Discharge Order (Routine); Ordered 05/07/20 Ordered By: Alfonso Vigil Other Ambulatory Orders: CA cardiac event monitor (Routine) Timeframe: 1 Day Facility: [facility] - Location: Cardiac Diagnostic Laboratory Ordered By: Alfonso Vigil Referrals: Christ Berumen MD [Physician] - 2 weeks (follow up after event) Oriana Carey MD [Physician] - 4-7 days (left upper lobe bronchus obstruction) Discharge Diet: Cardiac Discharge Activity: Resume usual activity Patient Instructions: Doxycycline (By mouth), Prednisone (By mouth), Atorvastatin (By mouth), Tiotropium (By breathing), Chest Pain (DC) Activity Restrictions/Additional Instructions: -If you have chest pain go to the emergency room or call 911 -Use aspirin and statin as prescribed -Nitroglycerin as needed for chest pain -Albuterol, Spiriva for COPD -Prednisone taper, doxycycline as prescribed -Please follow-up with cardiology in 2 weeks -Please follow-up with Dr. Carey in 4 to 7 days -If you have fevers, chills, worsening shortness of breath come back to emergen cy room Discharge Attestations Time Spent in Discharge Care*: less than 30 min Quality Metrics Clinical Quality Measures During this hospital stay, did patient experience: None Coding Level of Care Code Acute Field Service Manager for g Fwd Diagnoses Chest pain I20.0 Chest pain type: chest pain due to myocardial ischemia Ischemic chest pain type: unstable angina pectoris COPD (chronic obstructive pulmonary disease) with emphysema J43.9 Paroxysmal atrial fibrillation with RVR I48.0 Vitamin D deficiency E55.9 Erythrocytosis D75.1 Thrombocytosis D47.3 History of bladder cancer Z85.51 Lung nodule, multiple R91.8
--- NOTE | 2020-05-07 15:44 | PC.NURSE ---
discharge instructions given all questions answered at this time. iv removed, tip intact, patient tolerated well. patient then transferred to wheelchair and taken to ER entrance where private vehicle picked her up.
--- NOTE | 2020-05-08 16:42 | PC.RESP ---
Smoking Cessation and Pulmonary Rehab information sent to patient.
--- NOTE | 2020-05-11 16:20 | PC.NURSE ---
Lab called with 2 blood culture bottles that are positive with contaminants. pt was admitted here and discharged from the floor.
== END 2020-05-07 15:45 | disposition home or self-care (01) | DRG 311 ==
LOC: ER 19:07 → CSU 23:25
PROVIDERS: Admitting Provider Internal Medicine; Emergency Provider Emergency Medicine; PCP Urology; Visit Provider Family Medicine
DX: I20.0 Unstable angina (principal); J44.9 Chronic obstructive pulmonary disease, unspecified; E55.9 Vitamin D deficiency, unspecified; I48.0 Paroxysmal atrial fibrillation; D47.3 Essential (hemorrhagic) thrombocythemia; Z85.51 Personal history of malignant neoplasm of bladder; R91.8 Other nonspecific abnormal finding of lung field; Z79.82 Long term (current) use of aspirin; E03.9 Hypothyroidism, unspecified; F17.210 Nicotine dependence, cigarettes, uncomplicated
CPT/HCPCS: 12345; 36415; 71045; 71250; 78014; 80053; 81000; 82306; 82607; 83690; 83735; 83880; 84443; 84484; 85025; 85378; 85610; 87040; 87205; 93005; 93306; 93970; 94640; 96372; 96375; 99281; A9540; A9567; J0456; J0696; J1650; J1940; J2920; J7030; J7050

== ENCOUNTER 2020-05-21 12:57 | Outpatient (CLI) | payer MEDICARE, OTHER, SELFPAY ==
--- NOTE | 2020-05-21 13:30 | US_ITS ---
WS: [id number] THYROID ULTRASOUND (TI-RADS CRITERIA) History: Hypothyroidism. Technique: Ultrasound examination of the thyroid and adjacent soft tissues is performed. FINDINGS: Right lobe: 4.1 cm x 1.1 cm x 1.5 cm. Volume: 3.6 cm3. Normal size thyroid. Mild heterogeneity. 5 mm hypoechoic nodule in the central gland. Left lobe: 3.5 cm x 1.1 cm x 0.9 cm. Volume: 1.8 cm3. Normal size gland. No dominant or suspicious nodules. Isthmus: 0.2 cm. Mild intimal thickening of the LEFT carotid artery. Hypoechoic masses along the LEFT cervical chain. The largest measures 1.7 x 1.5 x 1.0 cm. There is loss of the normal fatty hilum. These are probably lymph nodes which are now rounded configuration. US/US thyroid [id number] Impression: TR1 Recommendation:No FNA or follow-up. Cervical chain lymphadenopathy. Abnormal LEFT inferior cervical chain lymph nod es. Concerning for malignancy.
== END 2020-05-21 12:58 | disposition home or self-care (01) ==
LOC: US 12:58
PROVIDERS: PCP Urology; Visit Provider Nurse Practitioner
DX: E03.9 Hypothyroidism, unspecified (principal); J43.9 Emphysema, unspecified; R91.8 Other nonspecific abnormal finding of lung field; R59.0 Localized enlarged lymph nodes
CPT/HCPCS: 76536

== ENCOUNTER 2020-05-23 07:18 | Emergency (ER) | payer MEDICARE, OTHER, SELFPAY ==
[2020-05-23] VITALS (8 sets, daily range): BP systolic 89–106; BP diastolic 54–75; PULSE 75–143; RESP 18–23; TEMP 36.5; O2SAT 95–97; BMI 18.3
--- NOTE | 2020-05-23 07:22 | ECG_ITS ---
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 Measurements Intervals [place] Rate: 163 P: DE: QRS: 79 QRSD: 77 T: 81 QT: 258 QTc: 425 Interpretive Statements ATRIAL FLUTTER/TACHYCARDIA WITH RAPID VENTRICULAR RESPONSE Compared to ECG 05/06/2020 20:14:16 Sinus rhythm no longer present Electronically Signed On 05-26-2020 9:45:14 CLINICAL ADMINISTRATIVE COORDINATOR by Tha Hernandez M.D. [email or web address]/[id number] f
--- NOTE | 2020-05-23 07:30 | ED_ITS ---
HPI - Arrhythmia/Palpitations General: Chief Complaint: Arrhythmia/Palpitations Stated Complaint: AFIB WITH RVR Time Seen by Provider: 05/23/20 07:21 History of Present Illness: HPI narrative: 65-year-old female comes in with rapid heart rate. She was seen recently hospitalized with same however does not sound like. Discharged home on anything for rate control or anticoagulants. She has a history of COPD. This been going on all night on initial presentation her heart rate 140s to 160s with blood pressure in the 90s systolic she is denying any chest pain. MD complaint: rapid heart beat and irregular heart beat Onset (ago): hour(s) Duration: constant Severity: mild Context: occurred during rest Arrhythmia history: atrial fibrillation Associated symptoms: Deny anxiety, cough, diaphoresis, muscle cramps, nausea, paresthesias, pre-syncope, sense of impending doom, short of breath, syncope or vomiting Review of Systems Const: Denies: diaphoresis ENMT: Denies: throat pain, ear or mastoid pain, nasal discharge or nasal congestion Card: Denies: syncope or pre-syncope Resp: Denies: dyspnea, productive cough or non-productive cough GI: Denies: nausea or vomiting : Denies: flank pain, difficulty voiding, dysuria, urinary frequency or urinary urgency Musc: Denies: muscle cramps Skin/Breast: Denies: rash or pruritus Psych: Denies: anxiety PFSH ED PFSH: Medical History Adult hypothyroidism COPD (chronic obstructive pulmonary disease) with emphysema Lung nodule, multiple Surgical History History of back surgery Lumbar 1988 and 1989 History of bladder cancer 2017 History of colonoscopy History of tubal ligation Family History Other Adult hypothyroidism Depression Diabetes Heart disease Social History Smoking and tobacco status: current every day smoker Second hand smoke exposure: No Smoking risk assessment/counseling performed?: Yes Alcohol intake: current Alcohol intake frequency: holidays/special occasions only Desire information about alcohol rehabilitation?: No Counseling given: No Desire information about substance/drug rehabilitation?: No Counseling given: No Adopted: No Caregiver/support person: No Lives independently: Yes Household members: none Housing: House Marital status: / Number of children: 3 service: No Current occupational status: unemployed and retired Pets and animals: Yes Pets & animals: cat(s) and dog(s) History of recent travel: No Current gender identity: Female Physical Exam Const: COMMON NORMALS: no acute distress GENERAL APPEARANCE: cooperative and comfortable ORIENTATION/CONSCIOUSNESS: Yes awake, Yes oriented to person, Yes oriented to place and Yes oriented to time HENMT: COMMON NORMALS: normocephalic, atraumatic and hearing grossly normal bilaterally HEAD & SCALP: normocephalic and atraumatic Neck/C-Spine: COMMON NORMALS: no JVD Resp: COMMON NORMALS: normal respiratory effort, No retractions, No use of accessory muscles and clear to auscultation bilaterally AUSCULTATION: clear to auscultation bilaterally Cardio: COMMON NORMALS: no JVD and No murmurs present (Cardio) RATE: tachycardic RHYTHM: abnormal rhythm irregularly irregular GI: COMMON NORMALS: Soft to palpation and No hepatosplenomegaly present AUSCULTATION: Yes normoactive bowel sounds PALPATION: Yes Soft to palpation, No Tenderness to palpation present (GI), No Guarding due to palpation present (GI) and Yes No hepatosplenomegaly present Extremity: COMMON NORMALS: normal to inspection, capillary refill normal, no clubbing, cyanosis or edema, no calf tenderness and no pedal edema Neuro: SENSORIUM/ORIENTATION: Yes oriented to person, Yes oriented to place and Yes oriented to time Skin: COMMON NORMALS: no rashes or lesions noted GENERAL SKIN EXAM: no rashes or lesions noted Course Vital Signs: Vital signs: Vital Signs Temperature 97.7 F 05/23/20 07:20 Pulse Rate 76 05/23/20 11:13 Respiratory Rate 18 05/23/20 11:13 Blood Pressure 96/54 05/23/20 11:13 Pulse Oximetry 96 05/23/20 11:13 MDM - Arrhythmia/Palpitations MDM Narrative: Medical decision making narrative: After initial evaluation part patient started on Cardizem drip and ultimately at a rate of 15 patient converted to normal sinus rhythm blood pressure initially was fairly soft due to the A. fib. Blood pressure is also improved we will go and discharge home on a very small dose of Toprol-XL 6.25 mg daily she has an appointment follow-up with cardiology later this week strongly encouraged to keep if any further problems return to the emergency room. Lab Data: Labs: Lab Results 05/23/20 05/23/20 05/23/20 Range/Units 07:30 07:30 07:30 WBC 8.9 (4.0-10.0) 10^3/ uL RBC 4.14 (4.1-5.3) 10^6/u L Hgb 13.1 (11.5-15.3) g/dL Hct 40.1 (37.0-47.0) % MCV 96.9 (81-99) fL MCH 31.6 (28.0-34.0) pg MCHC 32.7 (30.0-36.0) g/dL RDW 14.2 (12.1-15.1) % Plt Count 548 H (130-400) 10^3/c mm MPV 9.0 (7.4-10.4) fL Neut % (Auto) 63.9 % Lymph % (Auto) 23.4 % [place] % (Auto) 9.8 % Eos % (Auto) 1.9 % Baso % (Auto) 0.8 % Neut # (Auto) 5.66 (1.8-7.7) 10^3/u L Lymph # (Auto) 2.1 (0.8-4.8) 10^3/u L [place] # (Auto) 0.9 (0.2-0.9) 10^3/u L Eos # (Auto) 0.2 (0.0-0.8) 10^3/u L Baso # (Auto) 0.1 (0.0-0.1) 10^3/u L Nucleated RBC % (a uto) 0 % Nucleated RBCs # 0.0 /100WBC Sodium 138 (136-145) mmol/L Potassium 4.5 (3.5-5.1) mmol/L Chloride 104 (98-107) mmol/L Carbon Dioxide 24 (22-29) mmol/L Anion Gap 14.5 (5-19) BUN 17 (8-23) mg/dL Creatinine 0.5 (0.5-0.9) mg/dL GFR Calculation 123.8 (90-130) mL/min Glucose 111 (65-115) mg/dL Calculated Osmolal ity 288 (285-295) mOsm/k g Calcium 9.1 (8.5-10.5) mg/dL Total Bilirubin 0.2 (0.15-1.2) mg/dL AST 13 (0-32) U/L ALT 12 (0-33) U/L Alkaline Phosphata se 63 (35-105) IU/L Troponin T Baselin e 12 H (0-10) ng/L Troponin T 120 Min [place] (0-10) ng/L Delta Troponin T (0-10) ABS# Troponin T Hi Sens 6Hr Troponin T Hi Sens 6Hr Delta Total Protein 6.1 L (6.6-8.7) g/dL Albumin 3.8 (3.5-5.2) g/dL Globulin 2.3 (1.3-4.6) g/dL 05/23/20 05/23/20 Range/Units 09:30 13:30 WBC (4.0-10.0) 10^3/ uL RBC (4.1-5.3) 10^6/u L Hgb (11.5-15.3) g/dL Hct (37.0-47.0) % MCV (81-99) fL MCH (28.0-34.0) pg MCHC (30.0-36.0) g/dL RDW (12.1-15.1) % Plt Count (130-400) 10^3/c mm MPV (7.4-10.4) fL Neut % (Auto) % Lymph % (Auto) % [place] % (Auto) % Eos % (Auto) % Baso % (Auto) % Neut # (Auto) (1.8-7.7) 10^3/u L Lymph # (Auto) (0.8-4.8) 10^3/u L [place] # (Auto) (0.2-0.9) 10^3/u L Eos # (Auto) (0.0-0.8) 10^3/u L Baso # (Auto) (0.0-0.1) 10^3/u L Nucleated RBC % (a uto) % Nucleated RBCs # /100WBC Sodium (136-145) mmol/L Potassium (3.5-5.1) mmol/L Chloride (98-107) mmol/L Carbon Dioxide (22-29) mmol/L Anion Gap (5-19) BUN (8-23) mg/dL Creatinine (0.5-0.9) mg/dL GFR Calculation (90-130) mL/min Glucose (65-115) mg/dL Calculated Osmolal ity (285-295) mOsm/k g Calcium (8.5-10.5) mg/dL Total Bilirubin (0.15-1.2) mg/dL AST (0-32) U/L ALT (0-33) U/L Alkaline Phosphata se (35-105) IU/L Troponin T Baselin e (0-10) ng/L Troponin T 120 Min [place] 10.78 H (0-10) ng/L Delta Troponin T -1.22 L (0-10) ABS# Troponin T Hi Sens 6Hr Cancelled Troponin T Hi Sens 6Hr Delta Cancelled Total Protein (6.6-8.7) g/dL Albumin (3.5-5.2) g/dL Globulin (1.3-4.6) g/dL Discharge Plan Discharge Patient Disposition: Home Clinical Impression: Atrial fibrillation with rapid ventricular response Condition: Stable Prescriptions: New Toprol XL 25 mg tablet extended release 24 hr 6.5 mg PO DAILY Qty: 15 RF: 0 No Action albuterol sulfate [ProAir HFA] 90 mcg/actuation HFA aerosol inhaler 2 puff inhalation Q6H PRN (Reason: shortness of breath or wheezing) Qty: 18 RF: 0 aspirin 81 mg Tablet 81 mg PO DAILY RF: 0 atorvastatin 40 mg tablet 40 mg PO DAILY 30 Days Qty: 30 RF: 0 Spiriva with HandiHaler 18 mcg capsule, w/inhalation device 1 cap inhalation DAILY Qty: 30 RF: 0 nitroglycerin 0.4 mg tablet, sublingual 0.4 mg sublingual Q5M PRN (Reason: chest pain) Qty: 5 RF: 0 Discharge Orders: Discharge ED (Routine); Ordered 05/23/20 Ordered By: Gabriele Whitten Referrals: Cholo Finley MD [Primary Care Provider] - Coding Level of Care Code ED Photographic Artist for Chg Fwd Exam Comprehensive
[2020-05-23 07:53] LABS: Basophils # 0.1 10^3/uL (0.0-0.1); Basophils % 0.8 %; Eosinophils # 0.2 10^3/uL (0.0-0.8); Eosinophils % 1.9 %; Hematocrit 40.1 % (37.0-47.0); Hemoglobin 13.1 g/dL (11.5-15.3); Lymphocytes # 2.1 10^3/uL (0.8-4.8); Lymphocytes % 23.4 %; Mean Corpuscular HGB Conc 32.7 g/dL (30.0-36.0); Mean Corpuscular Hemoglobin 31.6 pg (28.0-34.0); Mean Corpuscular Volume 96.9 fL (81-99); Monocytes # 0.9 10^3/uL (0.2-0.9); Monocytes % 9.8 %; Neutrophils # 5.66 10^3/uL (1.8-7.7); Neutrophils % 63.9 %; Nucleated Red Blood Cells % 0 %; Platelet Count 548 10^3/cmm (130-400); Red Blood Count 4.14 10^6/uL (4.1-5.3); Red Cell Distribution Width 14.2 % (12.1-15.1); White Blood Count 8.9 10^3/uL (4.0-10.0)
[2020-05-23] MEDS: sodium chloride 0.9% 1,000 ML 999 ML IV (07:53)
[2020-05-23 08:43] LABS: Troponin(5th) Baseline 12 ng/L (0-10)
[2020-05-23 08:46] LABS: Alanine Aminotransferase 12 U/L (0-33); Albumin Level 3.8 g/dL (3.5-5.2); Alkaline Phosphatase 63 IU/L (35-105); Anion Gap 14.5 (5-19); Aspartate Amino Transferase 13 U/L (0-32); Blood Urea Nitrogen 17 mg/dL (8-23); Calcium 9.1 mg/dL (8.5-10.5); Carbon Dioxide 24 mmol/L (22-29); Chloride 104 mmol/L (98-107); Globulin 2.3 g/dL (1.3-4.6); Glomerular Filtration Rate 123.8 mL/min (90-130); Glucose 111 mg/dL (65-115); Osmolality Calculated 288 mOsm/kg (285-295); Potassium 4.5 mmol/L (3.5-5.1); Sodium 138 mmol/L (136-145); Total Bilirubin 0.2 mg/dL (0.15-1.2); Total Protein 6.1 g/dL (6.6-8.7)
--- NOTE | 2020-05-23 09:22 | ECG_ITS ---
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 Measurements Intervals [place] Rate: 90 P: [place]: QRS: 80 QRSD: 73 T: 89 QT: 358 QTc: 439 Interpretive Statements ATRIAL FIBRILLATION SEPTAL MYOCARDIAL INFARCTION , PROBABLY OLD [40+ ms Q WAVE IN V1/V2] Compared to ECG 05/06/2020 20:14:16 Myocardial infarct finding now present Sinus rhythm no longer present Electronically Signed On 05-26-2020 9:59:57 SINTER PRESS OPERATOR by Tha Hernandez M.D. [email or web address] county medical centerShoettefirelands regional [facility].Enubila/store/OM/[id number]
[2020-05-23 10:32] LABS: Troponin 5 2HR 10.78 ng/L (0-10)
[2020-05-23 10:49] LABS: Troponin 5 2HR Delta -1.22 ABS# (0-10)
== END 2020-05-23 11:14 | disposition home or self-care (01) ==
PROVIDERS: Emergency Provider Family Medicine; PCP Urology
DX: I48.20 Chronic atrial fibrillation, unspecified (principal); Z79.82 Long term (current) use of aspirin; J44.9 Chronic obstructive pulmonary disease, unspecified; Z85.51 Personal history of malignant neoplasm of bladder; F17.210 Nicotine dependence, cigarettes, uncomplicated
CPT/HCPCS: 12345; 80053; 84484; 85025; 93005; 96365; 96366; 96375; 99283; 99284; J3490; J7030

== ENCOUNTER → 2020-06-11 16:12 | Outpatient (BNVA) | payer MEDICARE, OTHER, SELFPAY | PROVIDERS: PCP Nurse Practitioner; Visit Provider Internal Medicine Critical Care Medicine | DX: R59.9 Enlarged lymph nodes, unspecified (principal) | CPT/HCPCS: 88271; 88275; 88305 ==

== ENCOUNTER 2020-06-15 09:30 | Outpatient (CLI) | payer MEDICARE, OTHER, SELFPAY ==
--- NOTE | 2020-06-15 16:58 | ONC CON_ITS ---
Dr. Gay New Patient Note Patient: Jerica Gary Unit #: [id number]: 1955 Dicatated By: Marlon Gay M.D.Date of Visit: Jun 15, 2020 Onc MED New Patient/Consult Referring Physician: Pawan Patiño N.P. History of Present Illness: Ms. Jerica Gary, is a 65-year-old female with history of COPD, recently developed left cervical lymphadenopathy Which were further noticed on ultrasound thyroid and right breast mass of 1 month duration . patient has history of chronic cough occasionally productive but denies any history of recurrent fever, denies any history of night sweats, but history of weight loss due to poor appetite and anxiety/stress. Patient has longstanding history of smoking and still very active, smoke about 10 cigarettes a day. As per patient ,she went to [facility] on May 06, 2020 with progressive shortness of breath/chest pain and CT scan of chest done which showed partial left upper lobe atelectasis and left upper lobe bronchus narrowing and mild centrilobular emphysema, patient was referred to pulmonology for bronchoscopy and when he observed left cervical lymphadenopathy, Instead of bronchoscopy , patient was scheduled for FNA left cervical lymph node and Subsequently underwent FNA of left posterior cervical lymph node on June 11, 2020 which showed small round blue cells with crush artifact, flow cytometry is pending for as per pulmonology note and his discussion with pathology FNA was consistent with small cell lung cancer or lymphoma, flow cytometry/immunohistochemistry is pending. Patient has history of bladder cancer and she had a bladder biopsy done in January 2014 which showed low-grade papillary urothelial carcinoma without extension to the lamina propria. As per records last bladder biopsy was done in July 2015 and it did not show any malignancy. Patient is being followed by Dr. Finley. Also underwent lower extremity venous Doppler study which shows no evidence of DVT and VQ scan showed low probability for pulmonary embolism and echocardiogram showed ejection fraction 82%. Because of her right breast pain/questionable nodule, now scheduled for mammogram on June 17, 2019. Past Medical History: Ms. Gary's medical history consists of anxiety, anxiety/depression/bulimia, atrial fibrillation, chronic kidney disease, chronic obstructive pulmonary disease, degenerative disease of the spine, depression, hypertension, hypothyroidism, iron deficiency anemia, superficial bladder cancer, and Vitamin D deficiency. Past Surgical History: Ms. Gary's surgical/procedural history consists of tubal ligation, TURBT in 2013, upper GI endoscopy and colonoscopy in 2011, back surgery in 1989, and back surgery in 1988. Medications: Aspirin 3 Tablet (of 81 mg) Tablet, enteric coated Oral b.i.d. PRN, Atorvastatin Calcium 1 Tablet (of 40 mg) Oral daily, Flecainide Acetate 1 Tablet (of 50 mg) Oral q 12 hours, Metoprolol Tartrate 0.5 Tablet (of 25 mg) Oral b.i.d., Nitroglycerin 1 Tablet (of 0.4 mg) Tablet, sublingual Sublingual PRN, Sertraline HCl 1 Tablet (of 50 mg) Oral daily Allergies: Benadryl Allergy, Iodine, Multiple food allergies, Penicillins, Promethazine HCl, steroids, and Sulfa Antibiotics. Social History: Ms. Gary is and she is retired. She is a daily smoker who has smoked 1.5 packs/day for 41 years. She has no history of drinking. She has indicated exposure to the following products: illicit drug use. Family History: Ms. Gary's mother at age 65: coronary artery disease, and hypertension, and diabetes. Ms. Gary has 1 brother who is alive. She has 1 sister who is : coronary artery disease, and hypertension, and diabetes. She does not know the cause of her father's . Her mother at age 65. She had diabetes and heart disease. She says all of her siblings also have diabetes and heart disease, and one brother is . The exception to that is a sister who at age 19 with lupus. There apparently are other family members with lupus, including 2 first cousins. There has been cancer in the family, but not in her immediate family. Review Of Symptoms: Constitutional - Positive for weight loss, fatigue and diminished appetite. Energy level is poor, ENMT - No sinus congestion/drainage. No mouth sores. No sore throat or difficulty swallowing, Hematologic/Lymphatic - Positive for easy bruising, Respiratory - Positive for cough and shortness of breath, Cardiovascular - She has exertional dyspnea and orthopnea. No angina pain. No palpitations, Gastrointestinal - No nausea or vomiting. No heartburn or acid reflux. No diarrhea or constipation. No blood in the stool or black stools, Genitourinary (F) - Positive for hematuria and urinary frequency, Musculoskeletal - No joint or bone pain, Neurologic - No headache. She occasionally has orthostatic lightheadedness. She has no other focal neurologic symptoms, Psychiatric - She has chronic anxiety and depression. She reports no memory loss. She does have difficulty sleeping. Vital Signs: Performed on May 12, 2015 14:19: 0, 20.6300, 1.61 sq.m, 65.00 in, 94 % (LOW), 77 /min, 12 /min, 162/88 mm(hg) (HIGH), 99.2 F (HIGH), and 124 lbs (HIGH). Performance Status: 1 - No physically strenuous activity, but ambulatory and able to carry out light or sedentary work (e.g. office work, light house work). (ECOG) Physical Examination: ENMT - No mouth sores, no thrush, no jaundice, 1 to 2 cm size lymph node in left cervical area, Respiratory - Poor air entry otherwise clear, Cardiovascular - Regular rate and rhythm of heart, Abdomen - Soft, bowel sounds present, Extremities - No visible edema or rash. Lab/Imaging: Most recent lab results are not available for this patient. Impression: Abnormal cytology but FNA left posterior cervical lymph node done on June 11, 2020, flow cytometry/immunohistochemistry is pending CT scan of chest done on May 06, 2020 showed partial left lobe atelectasis and left upper lobe bronchus narrowing. Mild centrilobular emphysema COPD, longstanding history of smoking, still active Plan: Discussed with patient regarding FNA left cervical lymph node findings, as per pulmonology note and his discussion with pathology FNA is consistent with small cell lung cancer or lymphoma, flow cytometry and immunohistochemistry to identify the primary is pending. Patient also had right breast discomfort/questionable mass for which she is scheduled for mammogram on June 17, 2020, will follow with results At this point, we will review flow cytometry/immunohistochemistry reports on FNA left cervical lymph node and if inconclusive, will recommend lymph node biopsy to obtain generous tissue for diagnostic work-up. We will also follow-up with right breast mammogram reports. Patient return to clinic in 1 week for further discussion regarding right breast mammogram findings as well as FNA left cervical lymph node follow cytometry/immunohistochemistry.report. Signed By: Marlon Gay M.D. <<Signature on File>>
== END 2020-06-15 09:31 | disposition home or self-care (01) ==
PROVIDERS: PCP Nurse Practitioner; Visit Provider Internal Medicine Hematology & Oncology
DX: C80.1 Malignant (primary) neoplasm, unspecified (principal); R89.5 Abnormal microbiological findings in specimens from other organs, systems and tissues; R91.8 Other nonspecific abnormal finding of lung field; J98.11 Atelectasis; N63.10 Unspecified lump in the right breast, unspecified quadrant; N64.4 Mastodynia; J43.2 Centrilobular emphysema; F17.210 Nicotine dependence, cigarettes, uncomplicated; Z85.51 Personal history of malignant neoplasm of bladder
CPT/HCPCS: 99204

== ENCOUNTER 2020-06-17 07:33 | Outpatient (CLI) | payer MEDICARE, OTHER, SELFPAY ==
--- NOTE | 2020-06-17 07:41 | MM_ITS ---
WS: [id number] DIAGNOSTIC BILATERAL DIGITAL MAMMOGRAM WITH CAD Bilateral breast ultrasound, limited HISTORY: N64.4 - Mastodynia COMPARISON: None available. TECHNIQUE: Bilateral craniocaudad, mediolateral oblique, and mediolateral views are submitted. Spot c ompression bilateral CC and RIGHT MLO. Computer aided detection utilized. Breast composition: There are scattered areas of fibroglandular density. Lobulated solid mass with in creased density upper outer quadrant of the RIGHT breast posteriorly. Solid mass measures 11 mm in di ameter. This corresponds to the palpable abnormality. There is an additional solid mass in the LEFT b reast at 9:00 posteriorly measuring 5 mm. No additional abnormalities LEFT breast. Bilateral breast ultrasound, limited. RIGHT breast: Solid mass with decreased echogenicity at 11:00, 3 cm from the nipple. Mass is lobulate d and holding wide measuring 1.0 x 1.0 x 1.0 cm. Corresponds to the mammographic abnormality. LEFT breast: Solid hypoechoic mass at 9:00, 2 cm from the nipple corresponds to the mammographic abno rmality. This mass measures 0.5 x 0.5 x 0.5 cm. Slight increased vascularity. MM/[place] [id number] IMPRESSION: BI-RADS: 4-Suspicious Finding-Biopsy Should Be Considered FOLLOW UP: Biopsy Recommended 1. Ultrasound-guided biopsy recommended of the RIGHT breast mass 11:00, 3 cm fr om the nipple. 2. Ultrasound-guided biopsy recommended of the LEFT breast mass at 9:00, 2 cm f rom the nipple.
--- NOTE | 2020-06-17 08:15 | US_ITS ---
WS: [id number] DIAGNOSTIC BILATERAL DIGITAL MAMMOGRAM WITH CAD Bilateral breast ultrasound, limited HISTORY: N64.4 - Mastodynia COMPARISON: None available. TECHNIQUE: Bilateral craniocaudad, mediolateral oblique, and mediolateral views are submitted. Spot c ompression bilateral CC and RIGHT MLO. Computer aided detection utilized. Breast composition: There are scattered areas of fibroglandular density. Lobulated solid mass with in creased density upper outer quadrant of the RIGHT breast posteriorly. Solid mass measures 11 mm in di ameter. This corresponds to the palpable abnormality. There is an additional solid mass in the LEFT b reast at 9:00 posteriorly measuring 5 mm. No additional abnormalities LEFT breast. Bilateral breast ultrasound, limited. RIGHT breast: Solid mass with decreased echogenicity at 11:00, 3 cm from the nipple. Mass is lobulate d and holding wide measuring 1.0 x 1.0 x 1.0 cm. Corresponds to the mammographic abnormality. LEFT breast: Solid hypoechoic mass at 9:00, 2 cm from the nipple corresponds to the mammographic abno rmality. This mass measures 0.5 x 0.5 x 0.5 cm. Slight increased vascularity. US/US breast BI limited* [id number] IMPRESSION: BI-RADS: 4-Suspicious Finding-Biopsy Should Be Considered FOLLOW UP: Biopsy Recommended 1. Ultrasound-guided biopsy recommended of the RIGHT breast mass 11:00, 3 cm fr om the nipple. 2. Ultrasound-guided biopsy recommended of the LEFT breast mass at 9:00, 2 cm f rom the nipple.
--- NOTE | 2020-06-25 14:37 | PC.NURSE ---
Yesterday I recieved a voicemail from patient around 1230 stating the pt would not be able to make it to her biopsy appt. Per voicemail she sounded weak and confused as she spoke slowly and wasnt sure if she was needing to cancel dr larson appt or her bx appt. I tried to call pt back around 2 pm 05/24, and i still have not been able to reach her via phone. Tom GOMEZ
== END 2020-06-17 07:34 | disposition home or self-care (01) ==
LOC: RADSHAW 07:36
PROVIDERS: PCP Nurse Practitioner; Visit Provider Nurse Practitioner
DX: N64.4 Mastodynia (principal); N63.11 Unspecified lump in the right breast, upper outer quadrant; N63.25 Unspecified lump in the left breast, overlapping quadrants
CPT/HCPCS: 76642; 77066

== ENCOUNTER 2020-06-29 14:12 | Outpatient (CLI) | payer MEDICARE, OTHER, SELFPAY ==
--- NOTE | 2020-06-29 15:27 | ONC FU_ITS ---
Dr. Gay follow up note Patient: Jerica Gary Unit #: [id number]: 1955 Dicatated By: Marlon Gay M.D.Date of Visit:Jun 29, 2020 Onc Med Follow-up/Prog Note History of Present Illness: Ms. Jerica Gary, is a 65-year-old female with history of COPD, recently developed left cervical lymphadenopathy and right breast mass of 1 month duration patient has history of chronic cough occasionally productive but denies any history of recurrent fever, denies any history of night sweats, but history of weight loss due to poor appetite and anxiety/stress. Patient has longstanding history of smoking and still very active, smoke about 10 cigarettes a day. As per patient she went to [facility] on May 06, 2020 with progressive shortness of breath/chest pain and CT scan of chest done which showed partial left upper lobe atelectasis and left upper lobe bronchus narrowing and mild centrilobular emphysema, patient was referred to pulmonology for bronchoscopy and when he observed left cervical lymphadenopathy patient underwent FNA of left posterior cervical lymph node on June 11, 2020 which showed small round blue cells with crush artifact, flow cytometry is pending for as per pulmonology note and his discussion with pathology FNA was consistent with small cell lung cancer or lymphoma, flow cytometry Showed no aberrant lymphoid tissues thus ruled out lymphoma and immunohistochemistry showed positive for synaptophysin CD56, chromogranin A, and Ki-67 100% was consistent with small cell carcinoma and being TTF-1 positive was suggestive of pulmonary in origin Patient has history of bladder cancer and she had a bladder biopsy done in January 2014 which showed low-grade papillary urothelial carcinoma without extension to the lamina propria. As per records last bladder biopsy was done in July 2015 and it did not show any malignancy. Patient is being followed by Dr. Finley. Also underwent lower extremity venous Doppler study which shows no evidence of DVT and VQ scan showed low probability for pulmonary embolism and echocardiogram showed ejection fraction 82%. Because of her right breast pain/questionable nodule, now scheduled for mammogram on June 17, 2019.But patient canceled it now rescheduled for July 01, 2019 CT PET scan done on June 20, 2020 showed 4 x 3.1 cm mass in the left upper lobe of the lung causing complete obstructive atelectasis and this extends into the mediastinum with malignant nodes in the subcarinal, subaortic, left paratracheal, prevascular territories. FDG positive nodes are evident in the thoracic inlet in the right and left tracheoesophageal grooves. Left cervical level 4 left posterior triangle left cervical level 3. And lateral right breast mass measuring 1 cm with SUV of 5.5 could be metastatic implant versus breast primary. A 1 cm region of activity in the posterior right sacrum is suggestive of early osseous metastatic disease with SUV of 4.3. And central uterine activity is noted with SUV of 12.3 and ultrasound suggested Came for follow-up, complaining of pain in her right breast and central chest not being controlled with Tylenol alone. Denies any right nipple discharge, denies any fever or chills denies any nausea or vomiting denies any diarrhea constipation but off and on headaches. Patient was scheduled for right breast biopsy on June 17, 2020 but patient canceled it because of fear of painful procedure. Patient is also complaining of dyspnea exertion but no shortness of breath at rest, still smoke about a pack a day. As per patient she lost her in January last year to multiorgan failure and recently sold her house and scheduled to move out in first week of August 2020 and she has no family member lives close by but her 3 daughters lives in [facility] and may consider moving up close to them. Medications: Aspirin 3 Tablet (of 81 mg) Tablet, enteric coated Oral b.i.d. PRN, Atorvastatin Calcium 1 Tablet (of 40 mg) Oral daily, Flecainide Acetate 1 Tablet (of 50 mg) Oral q 12 hours, Metoprolol Tartrate 0.5 Tablet (of 25 mg) Oral b.i.d., Nitroglycerin 1 Tablet (of 0.4 mg) Tablet, sublingual Sublingual PRN, Sertraline HCl 1 Tablet (of 50 mg) Oral daily Allergies: Benadryl Allergy, Iodine, Multiple food allergies, Penicillins, Promethazine HCl, steroids, and Sulfa Antibiotics. Review of Systems: Constitutional - Positive for weight loss, fatigue and diminished appetite. Energy level is poor, ENMT - No sinus congestion/drainage. No mouth sores. No sore throat or difficulty swallowing, Hematologic/Lymphatic - Positive for easy bruising, Respiratory - Positive for cough and shortness of breath, Cardiovascular - She has exertional dyspnea and orthopnea. No angina pain. No palpitations, Gastrointestinal - No nausea or vomiting. No heartburn or acid reflux. No diarrhea or constipation. No blood in the stool or black stools, Genitourinary (F) - Positive for hematuria and urinary frequency, Musculoskeletal - No joint or bone pain, Integumentary - She has had a persistent rash on her right foot. She developed pretty severe hives and lower extremity edema following her last bladder treatment, Neurologic - No headache. She occasionally has orthostatic lightheadedness. She has no other focal neurologic symptoms, Psychiatric - She has chronic anxiety and depression. She reports no memory loss. She does have difficulty sleeping. Vital Signs: Performed on Jun 29, 2020 14:21 Height - 65.00 in Weight - 123.8 lbs (LOW) BSA - 1.61 sq.m BMI - 20.60 Temperature - 96.9 F (LOW) Pulse - 83 /min Respiration - 26 /min BP - 166/98 mm(hg) (HIGH) O2 Sat - 96 % Pain - 0 Fatigue - 6 Performance Status: 1 - No physically strenuous activity, but ambulatory and able to carry out light or sedentary work (e.g. office work, light house work). (ECOG) Physical Examination: ENMT - . No mouth sores, no thrush, no jaundice, Respiratory - Lungs are clear to auscultation, Cardiovascular - Regular rate and rhythm of heart, Abdomen - Soft, bowel sounds Present, Extremities - No visible edema. Lab/Imaging: Most recent lab results are not available for this patient. Impression: Metastatic small cell carcinoma per FNA left cervical lymph node done on June 11, 2020, immunohistochemistry positive for synaptophysin, CD56, chromogranin A, TTF-1, Ki-67 100% and flow cytometry showed no abnormal lymphoid tissue thus lymphoma was ruled out. CT PET scan done on June 20, 2020 showed left upper lobe mass with postobstructive atelectasis, malignant mediastinal and cervical lymphadenopathy, FDG positive lateral right breast lesion primary breast carcinoma versus metastatic implant. Left adrenal metastatic disease, unifocal early osseous metastatic disease, suspicious central uterine activity CT scan of chest done on May 06, 2020 showed partial left lobe atelectasis and left upper lobe bronchus narrowing. Right breast lesion, primary versus metastatic implant, right breast biopsies under consideration Mild centrilobular emphysema COPD, longstanding history of smoking, still active Plan: Discussed with patient regarding her CT PET scan finding as well as left cervical FNA reporting which confirmed metastatic small cell lung cancer and CT PET scan shows extensive disease with left adrenal gland involvement and early left sacral lesion and clinically, she is feeling more dyspnea on exertion and also complaining of progressive central chest discomfort and right breast pain. Based on her cervical lymph node FNA and CT PET scan, patient has extensive stage small cell lung cancer and now with progressive symptoms e.g. progressive disease progression probably due to left upper lobe lung atelectasis or progressive mediastinal lymphadenopathy, will consider starting her on systemic therapy with carboplatin/etoposide/Tecentriq and also consider MRI scan of the brain To rule out brain mets as patient is complaining of off and on headaches All the side effects possible benefits associated with chemoimmunotherapy including but not limited to bone marrow suppression which can cause life-threatening infections, bleeding, generalized weakness and fatigue, hair loss, allergic reaction and endocrinopathy especially with immunotherapy Tecentriq. Further teaching will be done by chemotherapy nurse. Will obtain approval from her insurance prior to the treatment. In the meantime , we will order MRI scan of the brain, Port-A-Cath placement, hepatitis profile, and plan to give her carboplatin AUC 5 on day 1 and etoposide 100 mg/m??? day 1 through 3 and Tecentriq 1200 mg on day 1 with Neulasta support to prevent chemotherapy-induced neutropenia and to maintain chemotherapy schedule and repeat cycle every 3 weeks and will consider follow-up CT PET scan after 3 cycles of chemoimmunotherapy to assess the response. Patient was advised to quit smoking and was offered any assistance she may need And she was given prescription for Percocet 5/325 which she will take 1 to 2 tablets every 4-6 hours as needed for mid chest pain and right breast pain Patient was encouraged to go for right breast biopsy to confirm whether this is a metastatic implant or second primary. Signed By: Marlon Gay M.D. <<Signature on File>>
[2020-06-29 16:29] LABS: Hepatitis A Antibody IgM Non-Reactive (Nonreactive); Hepatitis B Core AB, Total Non-Reactive (Nonreactive); Hepatitis B Surface AB 3.5 (0-8.5); Hepatitis B Surface Antigen Non-Reactive (Nonreactive); Hepatitis C Virus Antibody Non-Reactive (Nonreactive)
== END 2020-06-29 14:13 | disposition home or self-care (01) ==
LOC: ONCMED 14:12
PROVIDERS: PCP Nurse Practitioner; Visit Provider Internal Medicine Hematology & Oncology
DX: C34.12 Malignant neoplasm of upper lobe, left bronchus or lung (principal); C77.8 Secondary and unspecified malignant neoplasm of lymph nodes of multiple regions; C79.72 Secondary malignant neoplasm of left adrenal gland; C79.51 Secondary malignant neoplasm of bone; Z11.59 Encounter for screening for other viral diseases; N64.9 Disorder of breast, unspecified; R51.9 Headache, unspecified; N64.4 Mastodynia; J43.2 Centrilobular emphysema; F17.200 Nicotine dependence, unspecified, uncomplicated; Z79.891 Long term (current) use of opiate analgesic; Z85.51 Personal history of malignant neoplasm of bladder
CPT/HCPCS: 36415; 86705; 86706; 86709; 86803; 87340; 99215

== ENCOUNTER 2020-07-01 11:39 | Outpatient (CLI) | payer MEDICARE, OTHER, SELFPAY ==
--- NOTE | 2020-07-01 13:00 | US_ITS ---
WS: [id number] ULTRASOUND-GUIDED LEFT BREAST BIOPSY CLINICAL INFORMATION: Breast Mass COMPARISON: None. FINDINGS: The procedure including risks, benefits, and complications were discussed with the patient who agreed to proceed. Using sterile technique patient was prepped and draped in the usual sterile fashion. Aft er 1% lidocaine utilizing real-time ultrasound guidance 5 14-gauge cores were obtained of the left br east lesion at the 9 o'clock position. Subsequently a titanium clip was placed in the biopsy cavity. No immediate complications. Pathology demonstrates B. 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 -Gomez Roldan grade 3 (score 9). - US/[place] [id number] IMPRESSION: 1. Uncomplicated ultrasound-guided left breast biopsy. 2. PATHOLOGY: B. 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 -Gomez Roldan grade 3 (score 9). RECOMMEND BREAST SURGERY CONSULTATION AND ONCOLOGY FOLLOW-UP. BI-RADS: 6-Known Biopsy-Proven Malignancy FOLLOW UP: Surgical Biopsy Recommended
--- NOTE | 2020-07-01 14:30 | US_ITS ---
WS: [id number] ULTRASOUND-GUIDED RIGHT BREAST BIOPSY CLINICAL INFORMATION: lobulated breast mass COMPARISON: None. FINDINGS: The procedure including risks, benefits, and complications were discussed with the patient who agreed to proceed. Using sterile technique patient was prepped and draped in the usual sterile fashion. Aft er 1% lidocaine utilizing real-time ultrasound guidance 5 14-gauge cores were obtained of the right b reast lesion at the 11 o'clock position 3 cm from the nipple. Subsequently a titanium clip was placed in the biopsy cavity. No immediate complications. PATHOLOGY DEMONSTRATES A. 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 -Gomez Roldan grade 3 (score 9). US/[place] [id number] IMPRESSION: 1. Uncomplicated ultrasound-guided right breast biopsy. 2. PATHOLOGY: A. 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 BI-RADS: 6-Known Biopsy-Proven Malignancy FOLLOW UP: Surgical Biopsy Recommended
[2020-07-10 13:30] LABS: Miscellaneous Test See Scanned Lab Rpt
== END 2020-07-01 11:40 | disposition home or self-care (01) ==
LOC: RAD 11:47
PROVIDERS: PCP Nurse Practitioner; Visit Provider Internal Medicine Hematology & Oncology
DX: N63.11 Unspecified lump in the right breast, upper outer quadrant (principal); N63.25 Unspecified lump in the left breast, overlapping quadrants; C50.411 Malignant neoplasm of upper-outer quadrant of right female breast; C50.812 Malignant neoplasm of overlapping sites of left female breast
CPT/HCPCS: 19083; 88305; 88361; 88367; 88374

== ENCOUNTER → 2020-07-08 14:08 | Outpatient (BNVA) | payer MEDICARE, OTHER, SELFPAY | PROVIDERS: PCP Nurse Practitioner; Visit Provider Surgery | DX: Z20.822 Contact with and (suspected) exposure to COVID-19 (principal); C34.90 Malignant neoplasm of unspecified part of unspecified bronchus or lung | CPT/HCPCS: 87635 ==

== ENCOUNTER 2020-07-10 07:41 | Outpatient (CLI) | payer MEDICARE, OTHER, SELFPAY ==
--- NOTE | 2020-07-10 07:42 | MR_ITS ---
WS: [id number] MRI BRAIN WITHOUT CONTRAST HISTORY: LUNG CANCER COMPARISON: 10/23/2015 TECHNIQUE: Diffusion imaging, multiplanar T1, T2 and FLAIR imaging obtained. Patient refused IV contrast. New since the prior examination from 2016 are multiple masses scattered throughout the brain involvin g the supratentorial and infratentorial brain. Masses are predominantly low signal attenuation on the T1 sequences. Mixed signal but predominantly increased signal on the FLAIR sequences. No significant amount of hemosiderin associated within these lesions. The largest lesions are bilaterally within th e cerebellum. The largest on the LEFT measures 2.0 x 1.3 cm. Bilateral thalamic lesions. The largest thalamic lesion on the LEFT measures 2.8 x 2.3 cm. There are numerous lesions bilaterally in the supr atentorial white matter, greatest on the LEFT. There is additional increased signal bilaterally withi n the flex. There is underlying ischemic change but also suspect metastatic lesion in the LEFT flex. Multiple cortical and subcortical white matter lesions bilaterally. Very mild cerebral atrophy. There is also evidence for mild chronic ischemic disease. Ventricles and extra-axial spaces are normal. No inferior displacement of cerebellar tonsils. The sella turcica and pituitary gland are unremarkabl e. Variable signal in the clivus. Dural venous sinuses and paimiut of Frost demonstrate no abnormality on this unenhanced studies. Paranasal sinuses: Clear. Mastoid air cells: Normal. Calvarium and scalp: Intact. MR/MR head wo con* [id number] IMPRESSION: 1. Sensitivity and specificity of this study is compromised as patient refused IV contrast. 2. Numerous lesions within the brain as described above are new since 2016 and highly suspicious for metastatic disease. There are lesions in the supratentor ial and infratentorial brain and the LEFT flex.
== END 2020-07-10 07:42 | disposition home or self-care (01) ==
LOC: RADSHAW 07:41
PROVIDERS: PCP Nurse Practitioner; Visit Provider Internal Medicine Hematology & Oncology
DX: C34.12 Malignant neoplasm of upper lobe, left bronchus or lung (principal)
CPT/HCPCS: 70551

== ENCOUNTER → 2020-07-17 14:07 | Outpatient (BNVA) | payer MEDICARE, OTHER, SELFPAY | PROVIDERS: PCP Nurse Practitioner; Visit Provider Surgery | DX: Z20.822 Contact with and (suspected) exposure to COVID-19 (principal) | CPT/HCPCS: 87635 ==

== ENCOUNTER 2020-07-21 08:22 | Day surgery (SDC) | payer MEDICARE, OTHER, SELFPAY ==
[2020-07-20 13:44] VITALS: BMI 19.7
[2020-07-21] VITALS (7 sets, daily range): BP systolic 95–120; BP diastolic 63–95; PULSE 72–139; RESP 18; TEMP 36.3–36.5; O2SAT 90–95; BMI 19.7
--- NOTE | 2020-07-21 | SCC_ITS ---
Procedure Done: Right subclavian vein PowerPort placement 19.6 seconds of fluoroscopic guidance, for a cumulative dose of 0.90 mGy, was provided to Dr. Dan by the radiology department. C-arm images of the chest were saved for the patient's permanent record. [facility]
--- NOTE | 2020-07-21 08:24 | SC_ITS ---
WS: [id number] C-ARM RADIOGRAPHS CHEST; 2 IMAGES HISTORY: Powerport Placement COMPARISON: None available. Intraoperative imaging during power port placement. Port-A-Cath present with tip in distal SVC. SC/C-arm FL for CVA [id number] IMPRESSION: Intraoperative imaging during Port-A-Cath placement.
[2020-07-21] MEDS: sodium chloride 0.9% 1,000 ML 30 ML IV (08:53)
--- NOTE | 2020-07-21 09:09 | ANES.PREANE2 ---
Pre-Anesthetic Assessment Pre-Anesthetic Assessment: Height/Weight: Height 1.63 m Weight 52.163 kg Temp Pulse Resp BP Pulse Ox 97.7 F 112 H 18 97/74 95 07/21/20 08:31 07/21/20 08:31 07/21/20 08:31 07/21/20 08:31 07/21/20 08:31 Preop Diagnosis: Metastatic lung cancer Proposed Procedure: Operation Date: 07/21/20 10:15 Proposed Procedures p Portacath Placement 21494 C34.90(Not Applicable) - Shalom Dan MD Familial anesthetic complications: None Was Beta Lois taken within 24 hours: Yes Last intake: Intake Last Liquid Date 07/20/20 Last Liquid Time 17:00 Last Solid Date 07/20/20 Last Solid Time 17:00 Social: Social History: Tobacco and No alcohol Exam: Pre-Anes Outpt Exam: alert, oriented x 3, clear to auscultation bilaterally and regular rate & rhythm Airway: Cervical ROM: WNL MP: 3 Dentition: False and Partials Pulmonary: Pulmonary: COPD Comments: lung cancer CV/HEM: CV/HEM: Afib Comments: hx a fib w/ RVR on aspirin HR elevated today - will do rate control with metoprolol/esmolol Metabolic: Metabolic: Thyroid Anesthetic Plan: ASA status: 4 Anesthesia: MAC Risk of > 500 ml blood loss (7ml/kg in children): No Meds/Allergies Current Medications: Current Medications Generic Name Dose Route Start Last Admin Trade Name Freq PRN Reason Stop Dose Admin Sodium Chloride 1,000 mls @ 30 ml s/hr 07/21/20 08:30 07/21/20 08:53 Sodium Chloride 0.9% IV 07/22/20 08:29 30 mls/hr .Q24H JAME Administration PFSH Anesthesia PFSH: Medical History Adult hypothyroidism COPD (chronic obstructive pulmonary disease) with emphysema Lung nodule, multiple Paroxysmal atrial fibrillation Surgical History History of back surgery Lumbar 1988 and 1989 History of bladder cancer 2017 History of colonoscopy History of tubal ligation Family History Mother CAD (coronary artery disease) Diabetes Sister CAD (coronary artery disease) Diabetes Lupus Brother CAD (coronary artery disease) Diabetes Grandfather Cancer Family/Other Stroke Suicide Other Adult hypothyroidism Depression Heart disease Denies family history of Clotting disorder Dementia Chronic kidney disease (CKD) Anesthesia complication Bleeding disorder Lung disease Social History Smoking and tobacco status: current every day smoker cigarettes Years cigarettes smoked: 40 [ Other cigarette details: Hx of 1.5 PPD x 30 Years ] Second hand smoke exposure: Yes Smoking risk assessment/counseling performed?: Yes Alcohol intake: current Alcohol intake frequency: holidays/special occasions only Desire information about alcohol rehabilitation?: No Counseling given: No Desire information about substance/drug rehabilitation?: No Counseling given: No Lives independently: Yes Household members: none Housing: House Marital status: / Number of children: 3 service: No Current occupational status: unemployed and retired Pets and animals: Yes Pets & animals: cat(s) and dog(s) History of recent travel: No Current gender identity: Female Data Anesthesia Cardiac Studies: Cardiac Event Monitor 05/26/20
[2020-07-21] MEDS: metoprolol tartrate 1 mg/1 mL SDV 5 mL 5 MG IV ×2 (09:22→10:00)
--- NOTE | 2020-07-21 09:40 | ECG_ITS ---
[facility] Test Date: 2020-07-21 Pat Name: Jerica Gary Department: Room: Gender: Female Glassie: : 1955 Requested By: Radha Tom Order Number: [id number] Priscilla MD: Yasmine Turcios M.D. Measurements Intervals [place] Rate: 138 P: AR: QRS: 84 QRSD: 64 T: 92 QT: 286 QTc: 434 Interpretive Statements ATRIAL FIBRILLATION WITH RAPID VENTRICULAR RESPONSE LOW QRS VOLTAGE IN EXTREMITY LEADS [QRS DEFLECTION < 0.5 mV IN LIMB LEADS] SEPTAL MYOCARDIAL INFARCTION [40+ ms Q WAVE IN V1/V2], OF INDETERMINATE AGE Compared to ECG 05/23/2020 10:13:06 Low QRS voltage now present Myocardial infarct finding still present Electronically Signed On 07-21-2020 17:54:04 [employer] by Yasmine Turcios M.D. [email or web address]
--- NOTE | 2020-07-21 10:46 | W.PM.OPSUD ---
Surgery/Procedure H&P Update DATE OF PROCEDURE: July 21, 2020 DATE H&P PERFORMED: 07/08/20 H&P UPDATE INFORMATION: I have reviewed H&P completed within last 30 days, I have examined patient prior to procedure and No changes to prior documentation PREOP DIAGNOSIS: Metastatic lung cancer PRIMARY INDICATION FOR PROCEDURE: The same PLANNED PROCEDURE: Operation Date: 07/21/20 10:15 Proposed Procedures p Portacath Placement 49960 C34.90(Not Applicable) - Shalom Dan MD
[2020-07-21] MEDS: clindamycin 600 MG/50 ML PREMIX 100 MG IV (11:04)
[2020-07-21] MEDS: lidocaine 2% INJ 20 mL (11:19)
[2020-07-21] MEDS: heparin, porcine 1,000 unit/mL INJ 10 mL 10000 UNIT (11:27)
--- NOTE | 2020-07-21 11:35 | PM.OP ---
Operative Report Date of procedure: July 21, 2020 Pre-op Diagnosis: Metastatic lung cancer Post-op diagnosis: same Procedure Done: Right subclavian vein PowerPort placement Intrepretation of yoni Fluroscopy was done by me thru the whole entire procedure. Implants: Right subclavian vein PowerPort placement Surgeon: Shalom Dan Rig Welder: military administrative techniciansoniya Jeronimo Circulating nurse Dara Anesthesia: MAC (director social welfare Will Smart) Estimated blood loss (mL): 5 Condition: stable Disposition: same day Brief History: Plan of care; After thorough history physical examination and reviewing the chart and reviweing the images iwth my personal intrepretation.I counseled the patient for Port-A-Cath placement, indications, risks including pneumothorax that may require Chest tube(s) placement and potential injury of major vascular structures that may require Thoractomy, benefits,indications and alternatives were all discussed with the patient, patient understands and is interested to proceed. Rationale was carefully and clearly discussed with the patient.Appropriate informed consent have been reviewed and signed. Procedure: Patient was identified in the holding area and taken to the operative room and placed in supine position IV propofol was given by the anesthesia provider ,both arms were tucked,Time-out was done verifying the patient's name/date of /planned procedure and destination after the procedure, all were in agreement. SCDs confirmed to be functioning, preoperative antibiotics administered per protocol, and beta leroy protocol was confirmed, appropriate positioning of the patient was done by me. Medications were reviewed to assess for anticoagulant usage. Risks and benefits and prevention of central line associated blood stream infection (CLABSI) were discussed with the patient/CPOA, and a consent was obtained. Monitors were in place and monitored throughout the procedure. All necessary supplies were available prior to start. Hand hygiene was completed prior to starting. Maximum barrier technique was utilized including a sterile gown, sterile gloves with a hat and mask. Site was was prepped with [chlorhexidine] and a full body drape was placed. 5 mL of 2% lidocaine was injected into the skin with a 25 gauge needle. Prep& drape was done under the usual sterile technique, lidocaine 2% was injected at the site of the stick, started by the right subclavian stick that retrieved venous blood was obtained from the first stick, a guidewire was then threaded and under the guidance of fluoroscopy position was confirmed to be in the IVC and my interpretation, there was some PVC changes and I had to pull on the wire backwards and PVCs were gone, at that point the guidewire was secured to the drapes with a hemostat and the needle was taken out, attention was then deviated towards creation of a pocket for the port were lidocaine 2% was injected using an 15 blade knife skin incision was created dissection using the Bovie to create a pocket for the PowerPort to be accommodated, hemostasis was secured, after the port being appropriately flushed it was inserted into the pocket and a tunneler was used to accommodate the catheter of the port cath to be delivered through the incision first created at the site of the stick, at that point under fluoroscopy an estimated length was measured for the catheter and was cut at the designed level, followed by that a dilator with the sheath introduced onto the guidewire the dilator and the wire were retrieved and the catheter of the port was introduced via the sheath where it was peeled off and the catheter maintained to be in the SVC that was confirmed with fluoroscopy, and the fluoroscopy interpretation was done by me throughout the entire procedure. The port was kept in its pocket, 3-0 Vicryl deep subdermal interrupted sutures, skin was then closed by 4-0 Monocryl as subcuticular closure. The stick site was closed by 3-0 Vicryl and surgical glue was used followed by dressing. Patient tolerated the procedure well was taken to the recovery area Count was correct at the end of the procedure I was present for the whole entire procedure. Position of the catheter was checked with a postoperative chest x-ray and it was in good position without evidence of pneumothorax
--- NOTE | 2020-07-21 11:38 | XR_ITS ---
WS: [id number] PORTABLE CHEST HISTORY: Status post right subclavian PowerPort placement COMPARISON: 05/06/2020 Port-A-Cath placed through the RIGHT subclavian vein with tip in the distal SVC. No pneumothorax. Continued increased consolidation centered over the LEFT hilum with partial obscuration of the hilar structures and heart. Small LEFT pleural effusion has increased in size since 05/06/2020. Cardiac size: Silhouette is obscured by the increasing consolidation and atelectasis at the lingula. Mediastinum/Aorta: Mild atherosclerosis aorta. No osseous abnormality seen. XR/XR chest 1V portable [id number] IMPRESSION: Interval placement of a RIGHT subclavian Port-A-Cath. No complications. Increasing consolidation with atelectasis in the lingula. New LEFT pleural effu mary anne since 05/06/2020.
--- NOTE | 2020-07-21 12:02 | ANE.PACU2 ---
Inpatient post-anesthesia follow up: Airway intact: Yes Vital signs: Temperature 97.3 F Pulse Rate 72 Respiratory Rate 18 Blood Pressure 98/64 Pulse Oximetry 90 Oxygen Delivery Me thod Room Air Oxygen Flow Rate Fraction of Inspir ed Oxygen Hydration adequate: Yes Nausea and vomiting: No Pain level: 2 Mental status: Baseline Additional Comments: NSR
== END 2020-07-21 12:40 | disposition home or self-care (01) ==
PROVIDERS: PCP Nurse Practitioner; Visit Provider Surgery
PROC: (CPT 36561; principal; 2020-07-21 10:05)
DX: C34.90 Malignant neoplasm of unspecified part of unspecified bronchus or lung (principal); J44.9 Chronic obstructive pulmonary disease, unspecified; Z79.82 Long term (current) use of aspirin; I48.0 Paroxysmal atrial fibrillation; Z85.51 Personal history of malignant neoplasm of bladder; F17.210 Nicotine dependence, cigarettes, uncomplicated; E03.9 Hypothyroidism, unspecified
CPT/HCPCS: 36561; 71045; 77001; 93005; 96374; 96375; C1788; J1644; J2370; J2704; J3010; J3490; J7030

== ENCOUNTER 2020-07-31 05:48 | Outpatient (RCR) | payer MEDICARE, OTHER, SELFPAY ==
--- NOTE | 2020-07-23 | CT_ITS ---
Radiation Therapy Planning CT images; total exam DLP: 560.53 mGy-cm MTDD
--- NOTE | 2020-07-23 13:06 | N.ONRAD NP_ITS ---
Radiation Oncology Consultation Patient Name: Jerica Gary Date of : 1955 Date of Service: 07/23/2020 Attending Physician: Vishal Callahan M.D. Jerica Gary was seen in consultation this afternoon at the request of Madhavi Gay M.D. for consideration of palliative cranial radiotherapy for the management of her extensive stage small cell lung cancer with newly diagnosed brain metastases. I reviewed (in the EMR - [facility]) the patient's initial emergency department visit admission in May 2020 after presenting with chest pain. She was diagnosed with atrial fibrillation with rapid ventricular rate. However, during her evaluation a chest radiograph identified left upper lobe atelectasis versus pneumonia. A subsequent thoracic CT revealed a narrowed left upper lobe bronchus and partial atelectasis upper lobe of the lung. A thyroid ultrasound on May 21, 2020 because of the patient's prior history of hypothyroidism, left cervical lymphadenopathy (largest lymph node measured 1.7 cm with loss of the fatty hilum). She was referred to pulmonology for evaluation of the abnormal CT image findings. A fine-needle aspiration biopsy of a palpable left posterior cervical lymph node performed on 2020 metastatic small cell carcinoma. She then described a palpable right breast lesion. Diagnostic mammography completed on June 17, 2020 demonstrated a lobulated solid mass in the upper outer quadrant of the right breast measuring 1.1 cm and a mass in the central portion of the left breast measuring 5 mm. Ultrasonography confirmed the right breast mass at the 11 o'clock position, 3 cm from the nipple measuring 1 cm and the left breast mass at the 9 o'clock position, 2 cm from the nipple measuring 5 mm. 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 A staging MR of the brain (dependently reviewed in [facility]) ordered on July 10, 2020 related numerous supra-tentorial and infra-tentorial lesions for metastatic disease. Ms. Gary presents to my office for discussion regarding palliative cranial radiotherapy. Following a discussion concerning Ms. Gary's MR, an attempt at palliative cranial radiotherapy is warranted. I would recommend a two week course of radiotherapy. A computed tomographic radiotherapy planning scan in the treatment position will be performed to identify the clinical tumor volume. She is unable to be prescribed glucocorticoids (allergy). The potential toxicities of whole brain radiotherapy were reviewed. The patient has verbalized understanding would like to proceed as recommended. Signed by: Dr. Vishal Callahan 07/23/2020 1:04:45 PM
--- NOTE | 2020-07-26 22:33 | ONC FU_ITS ---
[facility] Patient Note Patient: Jerica Gary Unit #: [id number]: 1955 Dictated By: Marlon Gay M.D.Date of Visit: Jul 23, 2020 Onc MED Follow-Up/Prog Note I spoke with Mrs. Gary today in regards to her MRI of the brain without contrast from 07/10/2020. She refused IV contrast according to the report. Dr. Gay was out of the office but Dr. Dillon had reviewed her MRI as he was covering for Dr. Gay. Multiple attempts were made to contact Mrs. Gary regarding her MRI results but were unsuccessful. She presented to the office today for the results. I introduced myself and informed her that Dr. Gay was out of the office but did review the MRI with her which was unfortunately abnormal. She does have numerous lesions within the brain which are new since her scan from 2015. They were highly suspicious for metastatic disease. The lesions were noted to be in the supratentorial and infra tentorial brain in the left flex. The largest lesions are bilaterally within the cerebellum. The largest on the left measures 2.0 x 1.3 cm bilateral thymic lesions. The largest thymic lesion on the left measures 2.8 x 2.3 cm. She was not started on any steroid as she claims an allergy to steroids but does not recall what it does to her. She states she does not have headaches. She is had no vision changes. She denies any nausea. She denies any symptoms. She was referred to Dr. Callahan and [facility] radiation oncology and he is planning to see her today. They will start radiation therapy on her soon as possible. We will have her see Dr. Gay early next week for further review of plan of care. Per Dr. Dillon's report it was determined that she does have small cell lung cancer. I did discuss this with Mrs. Gary as well. Signed By: SUSIE Eid, AOSADE Gay M.D. <<Signature on File>>
--- NOTE | 2020-07-28 11:32 | ONCRAD TMN_ITS ---
Radiation Oncology Treatment Management Note Patient Name: Jerica Gary Date of : 1955 Date of Service: 07/28/2020 Attending Physician: Vishal Callahan M.D. Jerica Gary is a 65 year old white female diagnosed with extensive stage cell lung cancer (June 2020) with brain metastases. The patient has received 6 Gy of a prescribed 30 Carvajal with a 3-dimensional conformal radiotherapy plan utilizing a half beam block treatment technique with opposed lateral portal larose. Upon review of systems, she denied neurological symptoms. On physical examination, the patient weighed 124 lbs. Her temperature was 99 ???F with a blood pressure of 177/91 mmHg. Her pulse was 67 bpm and the respiratory rate was 18. There were no neurological deficits. Continue whole brain radiotherapy as planned. Signed by: Dr. Vishal Callahan 07/28/2020 11:30:30 AM
== END 2020-08-02 23:59 | disposition home or self-care (01) ==
LOC: ONCMED 05:48
PROVIDERS: PCP Nurse Practitioner; Visit Provider Radiology Radiation Oncology
DX: Z51.0 Encounter for antineoplastic radiation therapy (principal); C34.12 Malignant neoplasm of upper lobe, left bronchus or lung; C79.31 Secondary malignant neoplasm of brain; D75.9 Disease of blood and blood-forming organs, unspecified; R79.89 Other specified abnormal findings of blood chemistry
CPT/HCPCS: 77280; 77290; 77295; 77300; 77334; 77412; 96523; 99215

== ENCOUNTER 2020-08-07 05:32 | Outpatient (RCR) | payer MEDICARE, OTHER, SELFPAY ==
--- NOTE | 2020-08-03 12:49 | ONCRAD TMN_ITS ---
Radiation Oncology Weekly Treatment Management Patient: Cookie Bhatt MR#: [id number] : 1955> Attending Physician: Dr. Jeff Ann Date of Service: 08/03/2020 Referring Physician(s) : Marlon Gay M.D. Diagnosis: C79.31 - Secondary malignant neoplasm of brain, Diagnosed 07/10/2020 (Active) D75.9 - Unspecified diseases of blood and blood-forming organs, Diagnosed 02/10/2015 (Active) Radiotherapy to date: Course: WholeBrain 2020, Treatment Site: WBRT, Ref. ID: [id number], Energy: 15X, Dose/Fx (cGy): 300, #Fx: 6 / 10, Dose Correction (cGy): 0, Total Dose (cGy): 1,800, Start Date: 07/27/2020, Elapsed Days: 7 Reason for visit: The patient is being seen today as part of their regularly scheduled weekly on treatment visits to assess for acute toxicities from radiotherapy. Review of Systems: She is very fatigued. She feels that she cannot do anything. Not eating well with 9 pound weight loss. Mouth sore. Prescribed Nystatin and acyclovir by Dr. Dillon over the weekend. Still smoking 5 cigs a day. Just sold house as she cannot afford to live in it since in 01/2020. She has to move out by abd she has no place to go as yet. All rentals are occupied. Vital Signs: Performed on 08/03/2020 11:27 AM BMI - 19.204 kg/m2, Height - 65.00 in, Weight - 115.4 lbs, Temperature - 97.6 f, Pulse - 43, Respiration - 20, O2 Sat - 98 %, Pain - 0 and BP - 110/ 61 mm(hg)(/low). Physical Exam: Bilateral buccal mucosal white plaques. Imaging: Radiation therapy imaging related to accurate target localization (i.e. KV, MV and CBCT) was reviewed. Appropriate changes, if any, were made to ensure treatment accuracy. Plan: Good tolerance of RT. Will continue as planned. Oral candidiasis now on Nystatin. Bradycardia and hypotension: Will hold metropolol and monitor BP and Pulse Housing crisis. She has to move out of house this week with no place to go. Will have social work see to assist in uncovering housing choices. Signed by: Dr. Jeff Ann 08/03/2020 12:48:23 PM
== END 2020-09-02 23:59 | disposition home or self-care (01) ==
LOC: ONCMED 05:32
PROVIDERS: PCP Nurse Practitioner; Visit Provider Radiology Radiation Oncology
DX: Z51.0 Encounter for antineoplastic radiation therapy (principal); C34.12 Malignant neoplasm of upper lobe, left bronchus or lung; C79.31 Secondary malignant neoplasm of brain
CPT/HCPCS: 77336; 77412; 77417